=== PATIENT | male | born 1950 | race Caucasian/White ===

== ENCOUNTER 2021-10-05 18:55 | Emergency (ER) | payer MEDICARE, OTHER, SELFPAY ==
[2021-10-05 19:42] VITALS: BP 144/70; BP 180/96; PULSE 82; PULSE 86; RESP 18; TEMP 36.7; O2SAT 96; O2SAT 98; BMI 18.8
--- NOTE | 2021-10-05 20:04 | ED_ITS ---
HPI - Alcohol General Chief Complaint: ETOH/Substance Use Stated Complaint: ETOH, SI,VOLUNTARY Time Seen by Provider: 10/05/21 19:13 Source: patient Mode of arrival: ambulatory Limitations: no limitations History of Present Illness HPI narrative: Patient comes emergency room complaining drinking alcohol earlier today, making SI statements. Patient is now sober, states that he has never hurt himself or would hurt others, denies suicidal/homicidal ideation. Patient states that now that the alcohol levels have gone down he can think more clearly. Patient states that he is on sertraline, is compliant with his m edications. Came to emergency room because his family advised him to come due to depression , but patient does not want any help for alcohol detox or behavior [facility] /care team consult. Review of Systems Review of Systems: Constitutional : No Weight loss, No Fever, No Chills, No Night Sweats, No Fatigue, No Malaise ENT/Mouth : No Hearing loss, No Ear Pain, No Nasal Congestion, No Sinus Pain, No Hoarseness, No sore throat, No Rhinorrhea, No Swallowing Difficulty Eyes: No Eye Pain, No Swelling, No Redness, No Foreign Body, No Discharge, No Vision Changes Cardiovascular : No Chest Pain, No SOB, No Dyspnea on Exertion, No Orthopnea, No Edema, No Palpitations Respiratory : No Cough, No Sputum, No Wheezing, No Smoke Exposure, No Dyspnea Gastrointestinal : No Nausea, No Vomiting, No Diarrhea, No Constipation, No abdominal Pain, No Hematochezia, No Melena Genitourinary : no irregular bleeding, No Dysuria, No Urinary Frequency, No Hematuria, No Urinary Incontinence, No Urgency, No Flank Pain, No Urinary Flow Changes, No Hesitancy Musculoskeletal : No joint pain, No Myalgias, No Joint Swelling Skin : No Skin Lesions, No rash Neuro : No Weakness, No Numbness, No Paresthesias, No Loss of Consciousness, No Dizziness, No Headache Psych : No Anxiety/Panic, complaining of Depression, No SI/HI/AH/VH, No Social Issues, Heme/Lymph: No Bruising, No Bleeding,No Lymphadenopathy Endocrine : No Polyuria, No Polydipsia, No Temperature Intolerance PMFSH Social History Social History Advance Directives: No Advance Directives Information Provided: No Physical Exam Vital Signs: Vital Signs: Last Vital Signs Temp 98.0 F 10/05/21 19:42 Pulse 82 10/05/21 19:42 Resp 18 10/05/21 19:42 BP 144/70 H 10/05/21 19:42 Pulse Ox 98 10/05/21 19:42 Body Mass Index 18.8 Const: Other: Appearance: Alert. Oriented X3. No acute distress. Eyes: Pupils equal, round and reactive to light. ENT: Pharynx normal. Neck: Normal inspection. Neck supple. No lymph nodes noted. No crepitus CVS: Normal heart rate and rhythm. Pulses normal. Normal S1 and S2 Respiratory: No respiratory distress. Breath sounds normal. No Wheezing. No rales Abdomen: Soft and nontender. No rigidity. No distention. good BS x4 Skin: Skin warm and dry. Normal skin color. Normal skin turgor. Extremities: No lower extremity edema. No Lacerations. No Rash Neuro: Oriented X 3. No motor deficit. No sensory deficit. Moving all extermities. No slurred speech. Cranial nerves 2-12 grossly intact, patient has been walking around 80 with steady gait Psych: Seems depressed, teary, calm, cooperative Course Course Course Narrative: Patient admits to being depressed but states he is not suicidal or homicidal. Patient admits to drinking alcohol earlier today, patient is now clinically sober. Patient declined any help from the head golf coach is, behavioral [facility]/care team. Discharge Plan Discharge Clinical Impression: Depression Patient Disposition: Home, Self-Care Instructions: Depression (ED) Additional Instructions: Please follow-up with your primary care physician tomorrow. If you have any worsening or new symptoms, please return to the emergency room or call 911
== END 2021-10-05 20:13 | disposition home or self-care (01) ==
PROVIDERS: Emergency Provider Emergency Medicine
DX: F33.1 Major depressive disorder, recurrent, moderate (principal); R45.851 Suicidal ideations; Z79.899 Other long term (current) drug therapy
CPT/HCPCS: 99283; 99284

== ENCOUNTER 2021-10-10 06:15 | Emergency (ER) | payer MEDICARE, OTHER, SELFPAY ==
--- NOTE | ~2021-10-10 | CT_ITS ---
EXAMINATION: CT HEAD WITHOUT CONTRAST CLINICAL INFORMATION: Trauma, headache COMPARISON: None TECHNIQUE: Contiguous axial imaging was performed from the skull base to vertex without intravenous administration of contrast. Additional 2-D coronal and sagittal reformatted images are generated on the CT workstation and uploaded to PACS. This CT examination was performed using dose optimization techniques as appropriate, variously including the following: *Automated exposure control *Adjustment of mA and/or kV according to patient size (this includes techniques or standardized protocols for targeted exams where dose is matched to indication/reason for exam; i.e. extremities or head) *Use of iterative reconstruction technique DLP: 855 mGy-cm FINDINGS: There is no intracranial hemorrhage, hematoma, or extra-axial fluid collection. The ventricles are normal in size. There is no hydrocephalus, edema, or mass effect. The arnold-white matter differentiation appears symmetric. There is no visible acute territorial infarct or mass lesion. The calvarium appears intact. There is no pneumocephalus or orbital emphysema. The visualized sinuses and middle ears and mastoid air cells show no significant mucosal thickening. There are no air-fluid levels. CT/CT head/brain wo con IMPRESSION: No acute intracranial abnormality.
[2021-10-10 06:22] VITALS: BMI 29.5
[2021-10-10 06:31] VITALS: BP 168/91; PULSE 100; RESP 17; TEMP 37.5; O2SAT 99
[2021-10-10 06:42] LABS: Appearance Urine CLEAR; Color Urine YELLOW; Glucose Urine UA NEG (NEG); Leukocyte Esterase Urine NEG (NEG); Nitrite Urine NEG (NEG); Specific Gravity - Urine <= 1.005 (1.005-1.025); UACC Culture Trigger NO; Urine Blood 1+ (NEG); Urine Ketones NEG (NEG); Urine Protein 1+ MG/DL (NEG-TRACE)
[2021-10-10 06:55] LABS: COVID-19 Test Negative (Negative)
[2021-10-10 07:01] LABS: WBC Urine 0 /HPF (0-4)
[2021-10-10 07:04] LABS: Amphetamine Screen Urine Not Detected (Not Detect); Barbiturates, Urine Not Detected (Not Detect); Benzodiazepines Screen Urine Not Detected (Not Detect); Cannabinoid Screen Urine Not Detected (Not Detect); Cocaine Screen Urine Not Detected (Not Detect); Fentanyl, urine Not Detected (Not Detect); Opiate Screen Urine Not Detected (Not Detect); Phencyclidine Screen Urine Not Detected (Not Detect)
--- NOTE | 2021-10-10 09:09 | ED.PSYCH ---
HPI - Psych General Chief Complaint: Psychiatric Symptoms Stated Complaint: Crisis Time Seen by Provider: 10/10/21 09:09 Source: patient Limitations: no limitations History of Present Illness HPI Narrative: Patient presents to the ER with increasing depression and thoughts of suicidal ideation. Patient states multiple events have increased his depression and thoughts of suicide. Patient states his girlfriend left him losses apartment his dog was sent to the pound. Patient states he tried to cut his wrist a few days prior. Patient admits to using alcohol in the past. Patient denies drug or alcohol use and denies tobacco history. Patient states he has longstanding history of anxiety and it has been worse over the past few days. Patient states he would cut his wrist tender only to kill himself. MD complaint: suicidal ideation Related Data Home Medications Medication Instructions Recorded Confirmed atenolol 50 mg tablet 1 tab PO DAILY 10/10/21 10/10/21 clonazepam 0.5 mg tablet 1 - 2 tab PO DAILY PRN 10/10/21 10/10/21 sertraline 100 mg tablet 1 tab PO DAILY 10/10/21 10/10/21 simvastatin 40 mg tablet 1 tab PO BEDTIME 10/10/21 10/10/21 trazodone 50 mg tablet 1 tab PO BEDTIME PRN 10/10/21 10/10/21 Allergies Allergy/AdvReac Type Severity Reaction Status Date / Time Penicillins Allergy Intermediate Rash Verified 10/10/21 06:30 Sulfa (Sulfonamide Allergy Intermediate Rash Verified 10/10/21 06:35 Antibiotics) [Sulfonamides] Review of Systems Constitutional: Constitutional: Denies body ache(s), Denies chills and Denies fever(s) Eyes: Eyes: Denies loss of vision ENT: Denies sore throat Cardiovascular: Cardiovascular: Denies chest pain and Denies dyspnea Respiratory: Respiratory: Denies dyspnea Gastrointestinal: Gastrointestinal: Denies nausea and Denies vomiting Musculoskeletal: Musculoskeletal: Reports no additional musculoskeletal complaints Integumentary/Breasts: Skin/Breast: Denies rash Comments: Healing abrasions left wrist Neurologic: Denies loss of vision Psychiatric: Psychiatric: Reports anxiety, Reports depression and Reports anhedonia Comments: Suicidal ideation Endocrine: Endocrine: Reports no additional endocrine complaints Hematologic/Lymphatic: Hematologic/Lymphatic: Denies easy bruising PMFSH Social History Social History Alcohol intake: current Alcohol intake frequency: 3 or more drinks per day Alcohol type: beer Patient Tobacco Use Status: Never used Tobacco Advance Directives: No Healthcare Proxy: No Guardian: No Physical Exam Vital Signs: Vital Signs: Last Vital Signs Temp 98.8 F 10/10/21 16:39 Pulse 69 10/10/21 16:39 Resp 18 10/10/21 16:39 BP 170/81 H 10/10/21 16:39 Pulse Ox 100 10/10/21 16:39 Body Mass Index 29.5 vital signs have been reviewed as normal and appeared to be correct. Blood pressure normal. Heart rate normal. Respiration rate normal. Temperature normal. Oxygen saturation normal. Appearance: Alert. Oriented X3. No acute distress. Head: Normal external exam. Slight ecchymosis noted right temporal area minimal tenderness Eyes: PERRLA. EOMI. Conjunctiva and sclera normal. ENT: Pharynx normal. Uvula midline. Moist mucous membranes. Neck: Soft full range of motion CVS: Heart regular rate and rhythm no murmurs and rubs Respiratory: Breath sounds are clear to auscultation bilaterally. No accessory muscle use noted. Abdomen: Soft nontender no rebound or guarding positive bowel sounds Back: No CVA tenderness. Full range of motion noted. Skin: Patient has healing left wrist superficial lacerations Extremities: No lower extremity edema. Extremities exhibit normal range of motion. Extremities nontender. Psych: Positive suicidal ideation positive increasing depression. Denies homicidal ideation Neuro: Oriented X 3. No motor deficit. No sensory deficit. Reflexes normal. Course Course Course Narrative: Suicidal ideation Depression Anxiety Close head injury/subarachnoid hemorrhage will CT the head at this time secondary to ecchymosis in the right islam low suspicion for intracranial hemorrhage 9:16 a.m. Plan to have crisis evaluation. COVID-19 test is negative U tox is negative 11:10 a.m. Care team request an alcohol level on patient will order at this time CT scan results are pending 11:[address] scan of the head is negative 12:55 p.m. Alcohol level is normal. Crisis recommends admission for suicidal ideation Section 12 will be filled out by the attending. 5:14 p.m. Patient has bed placement at [facility] and 8:00 p.m. plan for discharge at that time MDM - Psych Lab Data Labs: Lab Results 10/10/21 10/10/21 10/10/21 Range/Units 06:35 06:35 06:35 Urine Color YELLOW Urine Appearance CLEAR Urine pH 7.0 (5.0-8.0) Ur Specific [place] <= 1.005 (1.005-1.025) Urine Protein 1+ H (NEG-TRACE) MG/DL Urine Glucose (UA) NEG (NEG) MG/DL Urine Ketones NEG (NEG) MG/DL Urine Blood 1+ H (NEG) Urine Nitrite NEG (NEG) Ur Leukocyte Esterase NEG (NEG) Urine RBC 1-4 (0) /HPF Urine WBC 0 (0-4) /HPF Ur Squamous Epith Cells NONE /LPF Urine Bacteria NONE /LPF Urine Opiates Screen Not Detected (Not Detect) Urine Fentanyl Screen Not Detected (Not Detect) Ur Barbiturates Screen Not Detected (Not Detect) Ur Phencyclidine Scrn Not Detected (Not Detect) Ur Amphetamines Screen Not Detected (Not Detect) U Benzodiazepines Scrn Not Detected (Not Detect) Urine Cocaine Screen Not Detected (Not Detect) U Marijuana (THC) Screen Not Detected (Not Detect) Ethyl Alcohol mg/dL COVID-19 (GAURAV) Negative (Negative) COVID-19 Clin Com See Note 10/10/21 Range/Units 11:23 Urine Color Urine Appearance Urine pH (5.0-8.0) Ur Specific [place] (1.005-1.025) Urine Protein (NEG-TRACE) MG/DL Urine Glucose (UA) (NEG) MG/DL Urine Ketones (NEG) MG/DL Urine Blood (NEG) Urine Nitrite (NEG) Ur Leukocyte Esterase (NEG) Urine RBC (0) /HPF Urine WBC (0-4) /HPF Ur Squamous Epith Cells /LPF Urine Bacteria /LPF Urine Opiates Screen (Not Detect) Urine Fentanyl Screen (Not Detect) Ur Barbiturates Screen (Not Detect) Ur Phencyclidine Scrn (Not Detect) Ur Amphetamines Screen (Not Detect) U Benzodiazepines Scrn (Not Detect) Urine Cocaine Screen (Not Detect) U Marijuana (THC) Screen (Not Detect) Ethyl Alcohol < 10 mg/dL COVID-19 (GAURAV) (Negative) COVID-19 Clin Com Imaging Data CT scan - head: Radiologist's impression: [address] [address] [address] Scan Report Signed Patient: Dipak Delacruz MR#: [id number] : 1950 Acct:[id number] Age/Sex: 70 / M ADM Date: 10/10/21 Loc: HO.ED Attending Dr: Ordering Physician: Santiago Garcia Date of Service: 10/10/21 Procedure(s): CT head/brain wo con Accession Number(s): [id number] cc: Santiago Garcia ~ EXAMINATION: CT HEAD WITHOUT CONTRAST CLINICAL INFORMATION: Trauma, headache? COMPARISON: None TECHNIQUE: Contiguous axial imaging was performed from the skull base to vertex without intravenous administration of contrast.? Additional 2-D coronal and sagittal reformatted images are generated on the CT workstation and uploaded to PACS. This CT examination was performed using dose optimization techniques as appropriate, variously including the following: *Automated exposure control *Adjustment of mA and/or kV according to patient size (this includes techniques or standardized protocols for targeted exams where dose is matched to indication/reason for exam; i.e. extremities or head) *Use of iterative reconstruction technique DLP: 855 mGy-cm FINDINGS: There is no intracranial hemorrhage, hematoma, or extra-axial fluid collection.? The ventricles are normal in size. There is no hydrocephalus, edema, or mass effect.? The arnold-white matter differentiation appears symmetric.? There is no visible acute territorial infarct or mass lesion. The calvarium appears intact. There is no pneumocephalus or orbital emphysema.? The visualized sinuses and middle ears and mastoid air cells show no significant mucosal thickening. There are no air-fluid levels. CT/CT head/brain wo con IMPRESSION: No acute intracranial abnormality. ? Dictated By: Denny Ozuna MD Signed By: <Electronically signed by Denny Ozuna MD in OV> 10/10/21 1136 DD/ 0910 TD/TT:? Plant Protection Officer: CARMEN Discharge Plan Discharge Clinical Impression: Suicidal ideation Patient Disposition: Xfer Psychiatric Hosp Prescriptions: No Action trazodone 50 mg tablet 1 tab PO BEDTIME PRN (Reason: insomnia) RF: 0 clonazepam 0.5 mg tablet 1 - 2 tab PO DAILY PRN (Reason: Anxiety) RF: 0 sertraline 100 mg tablet 1 tab PO DAILY RF: 0 simvastatin 40 mg tablet 1 tab PO BEDTIME RF: 0 atenolol 50 mg tablet 1 tab PO DAILY RF: 0
[2021-10-10] MEDS: LORazepam 1 MG TABLET PO (09:17)
[2021-10-10 10:09] VITALS: BP 168/91; PULSE 100
[2021-10-10] MEDS: Sertraline HCL 100 MG TABLET PO (10:09)
[2021-10-10] MEDS: atenoloL 50 MG TABLET PO (10:09)
[2021-10-10 11:44] LABS: Ethanol < 10 mg/dL
[2021-10-10] MEDS: clonazePAM 0.5 MG TABLET PO (16:38)
[2021-10-10 16:39] VITALS: BP 170/81; PULSE 69; RESP 18; TEMP 37.1; O2SAT 100
== END 2021-10-10 19:09 ==
PROVIDERS: Emergency Medicine; Emergency Provider Emergency Medicine Emergency Medical Services
DX: R45.851 Suicidal ideations (principal); F32.A Depression, unspecified; Z79.899 Other long term (current) drug therapy; Z20.822 Contact with and (suspected) exposure to COVID-19
CPT/HCPCS: 36415; 70450; 80307; 81001; 82077; 87635; 99285

== ENCOUNTER 2025-01-18 13:42 | Inpatient (IN) | payer MEDICARE, OTHER, SELFPAY ==
--- NOTE | ~2025-01-18 | XR_ITS ---
EXAMINATION: XR CHEST CLINICAL INFORMATION: chest pain COMPARISON: None available. TECHNIQUE: 2 views of the chest were obtained. FINDINGS: The cardiac, hilar, and mediastinal contours are normal. Aortic mural calcification. The lungs are clear bilaterally. There is no pneumothorax or pleural effusion. There is no focal osseous or soft tissue abnormality. There are spinal and shoulder joint degenerative changes. XR/XR chest 2V IMPRESSION: No active pulmonary disease. Electronically signed by: Chandrakant Wilkes MD 01/18/2025 03:16 PM EST
--- NOTE | ~2025-01-18 | MR_ITS ---
CLINICAL HISTORY: R O Wernicke-Korsakoff MR Brain without gadolinium Comparison: CT/SR - CT HEAD/BRAIN WO CON - 10/10/21 10:35 EST Findings: No restricted diffusion. No intracranial mass or hemorrhage. No midline shift. No hydrocephalus. Vascular flow voids are intact. Scattered T2 signal prolongation in the periventricular white matter. Mild volume loss. The orbits are normal. The sinuses demonstrate mild mucoperiosteal thickening. Mastoid air cells are clear. No focal bone lesion. IMPRESSION: No acute ischemia or alternate acute process. Specifically, no edema involving the thalami or periaqueductal arnold area. Mild ischemic microangiopathy and diffuse volume loss. This document has been electronically signed by: Sarath Gaming MD on 01/26/2025 17:49:43
--- NOTE | 2025-01-18 13:51 | ED_ITS ---
HPI - General Adult General Chief complaint: Chest Pain Stated complaint: CP PER EMS Time Seen by Provider: 01/18/25 13:50 History of Present Illness ED Provider: Kp ROCA narrative: The patient is a 74-year-old male who says that he has had chest pain since yesterday evening at around 18:00. He says it started more in the left side but subsequently has moved to a more central location in his mid chest. He has had some associated nausea. He has felt some mild shortness of breath. He ultimately called an ambulance and was brought to the hospital. He received aspirin in the ambulance. He rates his discomfort as an 8/10 at the moment. No nausea or vomiting. No fever, sweats, chills. He says that he has a history of some kind of heart valve problem. He says that he was seen at [facility] a couple of years ago and told that he has a valvular problem. He has been on atenolol and another medication for awhile but was unable to fill his prescriptions several months ago and has been off medications for several months. He used to live in the [facility] but now lives at a sober living house, [facility]. He is . He says that he lost most of his assets in the divorce and that is why he is living where he is currently living. The patient says that he used to drink fairly heavily but has not had any alcohol for a couple of years. He is still a smoker. The patient is feeling depressed. He has a history of depression. He was hospitalized for depression in 2020. He says that the move to the house where he is currently living has been bad for his mental health and he has been thinking about how depressed he is. He has had vague suicidal thoughts. He has had vague thoughts about jumping off a bridge. Related Data Home Medications ?Medication ?Instructions ?Recorded ?Confirmed atenolol 50 mg tablet 1 tab PO DAILY 10/10/21 10/10/21 clonazepam 0.5 mg tablet 1 - 2 tab PO DAILY PRN Anxiety 10/10/21 10/10/21 sertraline 100 mg tablet 1 tab PO DAILY 10/10/21 10/10/21 simvastatin 40 mg tablet 1 tab PO BEDTIME 10/10/21 10/10/21 trazodone 50 mg tablet 1 tab PO BEDTIME PRN insomnia 10/10/21 10/10/21 Allergies Allergy/AdvReac Type Severity Reaction Status Date / Time Penicillins Allergy Intermediate Rash Verified 01/18/25 14:10 Sulfa (Sulfonamide Allergy Intermediate Rash Verified 01/18/25 14:10 Antibiotics) [Sulfonamides] Review of Systems 2 Review of Systems: Yes all other systems are reviewed and are negative [facility] Social History Social History Alcohol intake: current Alcohol intake frequency: 3 or more drinks per day Alcohol type: beer Patient Tobacco Use Status: Never used Tobacco Advance Directives: No Advance Directives Information Provided: Yes Do you have a plan to hurt others: No Plan Physical Exam ED Vital Signs: Vital Signs - 24 hr 01/18/25 14:05 01/18/25 16:37 Temperature 98.2 F 98.1 F Pulse Rate 92 80 Respiratory Rate 14 14 Blood Pressure 131/78 121/76 Pulse Oximetry 97 98 Oxygen Delivery Method Room Air Room Air BMI result Body Mass Index 28.9 Const Other: The patient is awake and alert, pleasant cooperative. He does not appear in overt distress. HENMT Other: Face is symmetrical. Mucous membranes moist. Eyes Other: Pupils are round equal, conjunctivae are clear Neck Neck: Yes full ROM, Yes no lymphadenopathy and Yes no JVD Resp Effort & Inspection: normal respiratory effort Auscultation: clear to auscultation bilaterally Cardio Rate: regular rate Rhythm: regular rhythm Heart sounds: S1 normal heart sound present, S2 normal heart sound present and Murmur heart sound present (3/6 systolic murmur best heard at the left upper sternal border) GI Other: Abdomen is soft and nontender Skin Other: Skin is dry and unremarkable Neuro Other: The patient is awake and alert with a normal mental status. Cranial nerves 2-12 are intact. He moves his extremities normally and appropriately. Normal coordination. He is neurologically intact. Extrem Other: No calf swelling or tenderness. No peripheral edema. No asymmetry. Medications Administered Discontinued Medications Generic Name Dose Route Start Last Admin Trade Name Freq PRN Reason Stop Dose Admin Al Hydroxide/Mg Hydroxide 30 ml 01/18/25 14:24 01/18/25 14:42 Magnesium Hydrox/Alum Hydrox 30 Ml Oral.Susp PO 01/18/25 14:25 30 ml ONCE ONE Administration Ondansetron HCl 4 mg 01/18/25 14:24 01/18/25 14:42 Ondansetron Hcl 4 Mg/2 Ml Vial IVPUSH 01/18/25 14:25 4 mg ONCE ONE Administration Medical Decision Making Medical Decision Making [facility] Narrative: The patient is a very pleasant 74-year-old male who comes to the emergency room complaining of chest pain. He says there is a family history of coronary disease and he is worried he might be having a heart attack. He presents after over 12 hours of discomfort. His EKGs nonischemic. His troponins are not elevated. A D-dimer is normal. My suspicion for an acute coronary syndrome or other dangerous vascular problem is very low. When I explained to the patient that his medical evaluation seemed to be very reassuring he then spoke to me about how he has been feeling depressed. He has a history of depression and has been psychiatrically hospitalized in the past. He says that his current living situation is getting him down. He says that he had a divorce in which he lost most of his assets. That is why he is currently living at what is essentially a [facility] house. He finds this tomorrow rising and depressing. He has had some suicidal thoughts and has thought about jumping off a bridge although he has no definite plan. The patient seems to be medically cleared. I think he would benefit from a care team evaluation. I have put in a consult for a care team evaluation. The patient will be placed in physician observation pending a care team evaluation and recommendations. Lab Data 01/18/25 14:39 01/18/25 14:39 Labs: Lab Results 01/18/25 01/18/25 Range/Units 14:39 16:00 WBC 8.7 (4.8-10.8) X10*3/uL RBC 4.75 (4.60-5.80) X10*6/uL Hgb 13.7 L (14.0-18.0) g/dl Hct 39.8 L (42.0-52.0) % MCV 83.8 (80.0-98.0) fL MCH 28.8 (27.0-33.0) pg MCHC 34.4 (31.0-36.0) g/dl RDW 13.7 (11.0-16.0) % Plt Count 244 (160-400) X10*3/uL MPV 8.6 L (9.4-12.4) fL Immature Gran % (Auto) 0.3 (0.0-0.4) % Neut % (Auto) 82.9 H (45-73) % Lymph % (Auto) 10.5 L (20-40) % [place] % (Auto) 5.1 (2-11) % Eos % (Auto) 0.9 (0-4) % Baso % (Auto) 0.3 (0-2) % Lymph # (Auto) 0.9 L (1.2-4.9) X10*3/uL [place] # (Auto) 0.4 (0.1-1.2) X10*3/uL Eos # (Auto) 0.1 (0.0-0.4) X10*3/uL Baso # (Auto) 0.0 (0.0-0.2) X10*3/uL Abs Immat Gran (auto) 0.03 (0.00-0.03) X10*3/uL Absolute Neuts (auto) 7.2 (2.0-8.3) x10*3/uL Absolute Nucleated RBC 0.000 (0.0-0.012) X10*3/uL Nucleated RBC % (auto) 0.0 (0.0-0.2) /100WBC PT 11.8 (10.9-12.4) SEC INR 1.0 (0.9-1.1) D-Dimer High Sensitivty 154 NG/ML Sodium 138 (135-145) mmol/L Potassium 3.9 (3.3-5.1) mmol/L Chloride 105 (96-108) mmol/L Carbon Dioxide 25 (22-29) mmol/L Anion Gap 12 (12-20) BUN 13 (9-16) mg/dL Creatinine 0.74 (0.5-1.4) mg/dL Estim Creat Clear Calc 113.3 Estimated GFR > 60 Random Glucose 93 (60-115) mg/dL Calcium 9.4 (8.4-10.2) mg/dL Magnesium 2.0 (1.6-2.6) mg/dL Total Bilirubin 0.4 (0.0-1.0) mg/dL Direct Bilirubin 0.2 (0.0-0.5) mg/dL AST 22 (5-37) U/L ALT 13 (0-40) U/L Alkaline Phosphatase 64 (39-117) U/L Troponin I High Sens 12.6 11.5 (<3.5-35.0) ng/L C-Reactive Protein 1.22 H (< or = 0.50) mg/dL B-Natriuretic Peptide 29 (<100) pg/mL Total Protein 7.5 (6.5-8.0) g/dL Albumin 3.7 (3.5-5.0) g/dL Lipase 18 (8-78) U/L Urine Color Yellow Urine Appearance Clear Urine pH 6.0 (5.0-9.0) Ur Specific [place] 1.025 (1.005-1.025) Urine Protein Negative (Neg-Trace) mg/dL Urine Glucose (UA) Negative (Negative) mg/dL Urine Ketones Trace (Negative) mg/dL Urine Blood Negative (Negative) Urine Nitrite Negative (Negative) Ur Leukocyte Esterase Small (1+) H (Negative) Urine RBC 3-5 H (0-2) /HPF Urine WBC 21-50 H (0-5) /HPF Ur Squamous Epith Cells 0-2 (0-2) /HPF Urine Bacteria Trace (None Seen) Hyaline Casts 0-2 (0-2) /LPF Influenza Type A (PCR) NEGATIVE (Negative) Influenza Type B (PCR) NEGATIVE (Negative) RSV RNA Qual (PCR) NEGATIVE (Negative) SARS-CoV-2 RNA (RT-PCR) NEGATIVE (Negative) Independent Interpretation I performed an independent interpretation of an: EKG Interpretation: EKG at 14:10 shows normal sinus rhythm at 96 beats per minute. No definite acute ischemic changes. Discharge Plan Discharge Clinical Impression: Depression, Chest pain Patient Disposition: Still a Patient Prescriptions: No Action trazodone 50 mg tablet 1 tab PO BEDTIME PRN (Reason: insomnia) clonazepam 0.5 mg tablet 1 - 2 tab PO DAILY PRN (Reason: Anxiety) sertraline 100 mg tablet 1 tab PO DAILY simvastatin 40 mg tablet 1 tab PO BEDTIME atenolol 50 mg tablet 1 tab PO DAILY Print Language: Yakut
--- NOTE | 2025-01-18 14:01 | ECG_ITS ---
Test Reason : CHEST PAIN Blood Pressure : */* mmHG Vent. Rate : 96 BPM Atrial Rate : 96 BPM P-R Int : 200 ms QRS Dur : 92 ms QT Int : 360 ms P-R-T Axes : 12 -29 40 degrees QTcB Int : 454 ms Normal sinus rhythm Inferior infarct , age undetermined Cannot rule out Anterior infarct , age undetermined Abnormal ECG No previous ECGs available Referred By: Mark Goodrich Electronically Signed By: VIVIANA DALTON
[2025-01-18 14:02] VITALS: BP 96/62; PULSE 104; O2SAT 97
[2025-01-18 14:05] VITALS: BP 131/78; PULSE 92; RESP 14; TEMP 36.8; O2SAT 97; BMI 28.9
[2025-01-18] MEDS: ondansetron HCL 4 MG/2 ML VIAL IVPUSH (14:42)
[2025-01-18] MEDS: Magnesium Hydrox/Alum Hydrox 30 ML ORAL.SUSP PO (14:42)
[2025-01-18 14:43] LABS: MANUAL DIFF FLAG NO
[2025-01-18 14:46] LABS: Basophils Percent Auto 0.3 % (0-2); Eosinophils Absolute Auto 0.1 X10*3/uL (0.0-0.4); Eosinophils Percent Auto 0.9 % (0-4); Hematocrit 39.8 % (42.0-52.0); Hemoglobin 13.7 g/dl (14.0-18.0); Imm Gran Abs Auto 0.03 X10*3/uL (0.00-0.03); Imm Gran Pct Auto 0.3 % (0.0-0.4); Lymphocytes Absolute Auto 0.9 X10*3/uL (1.2-4.9); Lymphocytes Percent Auto 10.5 % (20-40); Mean Corpuscular HGB Conc 34.4 g/dl (31.0-36.0); Mean Corpuscular Hemoglobin 28.8 pg (27.0-33.0); Mean Corpuscular Volume 83.8 fL (80.0-98.0); Mean Platelet Volume 8.6 fL (9.4-12.4); Monocytes Absolute Auto 0.4 X10*3/uL (0.1-1.2); Monocytes Percent Auto 5.1 % (2-11); Neutrophils Absolute Auto 7.2 x10*3/uL (2.0-8.3); Neutrophils Percent Auto 82.9 % (45-73); Platelet Count 244 X10*3/uL (160-400); Red Blood Count 4.75 X10*6/uL (4.60-5.80); Red Cell Distribution Width 13.7 % (11.0-16.0); White Blood Count 8.7 X10*3/uL (4.8-10.8)
[2025-01-18 14:59] LABS: Prothrombin Time 11.8 SEC (10.9-12.4)
[2025-01-18 15:05] LABS: Alanine Aminotransferase 13 U/L (0-40); Albumin Level 3.7 g/dL (3.5-5.0); Anion Gap 12 (12-20); Aspartate Amino Transferase 22 U/L (5-37); Bilirubin Direct 0.2 mg/dL (0.0-0.5); Bilirubin Total 0.4 mg/dL (0.0-1.0); Blood Urea Nitrogen 13 mg/dL (9-16); C Reactive Protein 1.22 mg/dL (< or = 0.50); Calcium 9.4 mg/dL (8.4-10.2); Carbon Dioxide 25 mmol/L (22-29); Chloride 105 mmol/L (96-108); Creatinine Clr Calc Pharmacy 113.3; Estimated Glomerular Filt Rate > 60; Glucose Random 93 mg/dL (60-115); Lipase 18 U/L (8-78); Potassium 3.9 mmol/L (3.3-5.1); Sodium 138 mmol/L (135-145); Total Protein 7.5 g/dL (6.5-8.0)
[2025-01-18 15:06] LABS: Troponin-I High Sensitivity 12.6 ng/L (<3.5-35.0)
[2025-01-18 15:22] LABS: Influenza A PCR NEGATIVE (Negative); Influenza B PCR NEGATIVE (Negative); Resp Syncy Virus RNA Qual PCR NEGATIVE (Negative); SARS COV2 PCR INHOUSE NEGATIVE (Negative)
[2025-01-18 15:29] LABS: Alkaline Phosphatase 64 U/L (39-117)
[2025-01-18 15:46] LABS: D Dimer High Sensitivity 154 NG/ML
[2025-01-18 16:06] LABS: Appearance Urine Clear; Color Urine Yellow; Glucose Urine UA Negative (Negative); Leukocyte Esterase Urine Small (1+) (Negative); Nitrite Urine Negative (Negative); Specific Gravity - Urine 1.025 (1.005-1.025); UMIC TRIGGER UACC YES; Urine Blood Negative (Negative); Urine Ketones Trace mg/dL (Negative); Urine Protein Negative (Neg-Trace)
[2025-01-18 16:07] LABS: B Type Natriuretic Peptide 29 pg/mL (<100)
[2025-01-18 16:18] LABS: Bacteria Urine Trace (None Seen); Hyaline Casts Urine 0-2 /LPF (0-2); Squamous Epithelial Cell Urine 0-2 /HPF (0-2); UACC Culture Trigger YES; WBC Urine 21-50 /HPF (0-5)
[2025-01-18 16:23] LABS: Troponin-I High Sensitivity 11.5 ng/L (<3.5-35.0)
[2025-01-18 16:37] VITALS: BP 121/76; PULSE 80; RESP 14; TEMP 36.7; O2SAT 98
--- NOTE | 2025-01-18 18:13 | PC.NURSE ---
Patient initially presented to ED w/ CP - full cardiac work up completed & negative. Provider Dr. Flores went in to speak with patient about possibility of D/C home, patient then began endorsing SI stating per Dr. Flores he's been looking for bridges to jump off of . CARE team consult placed, patient changed into [facility], belongings secured in [facility] closet by GYAE Shrestha.
--- NOTE | 2025-01-18 18:29 | PC.NURSE ---
patient states that home medications include atenolol, simvstatin, sertraline. patient does not know the dose and states that he has not taken them in over a year.
[2025-01-18 18:58] LABS: Amphetamine Screen Urine Not Detected (Not Detect); Barbiturates, Urine Not Detected (Not Detect); Benzodiazepines Screen Urine Not Detected (Not Detect); Buprenorphine Scr Not Detected (Not Detect); Cannabinoid Screen Urine Not Detected (Not Detect); Cocaine Screen Urine Not Detected (Not Detect); Fentanyl, urine Not Detected (Not Detect); Methadone Screen, Urine Not Detected (Not Detect); Opiate Screen Urine Not Detected (Not Detect); Oxycodone Screen Urine Not Detected (Not Detect); Phencyclidine Screen Urine Not Detected (Not Detect)
[2025-01-19 04:18] VITALS: BP 133/72; PULSE 90; RESP 18; TEMP 36.6; O2SAT 95
--- NOTE | 2025-01-19 11:15 | PHA.MEDREC ---
Addendum entered by Shanatnu Wayne RPh 01/19/25 11:33: Reviewed by [facility]. Pt is not on any medications. Original Note: Pharmacy Consult ? Medication Reconciliation Pharmacy has completed the medication reconciliation. Spoke with patient and he confirmed he is not taking any medications at this time and has not taken anything in about 6 months. He did confirm he was taking Atenolol, Sertraline, Simvastatin and Trazodone, looking in claims we have Sertraline and Trazodone last filled 04/17 for 30 days and for Atenolol and Simvastatin we have no claims for those.
[2025-01-19 13:42] VITALS: BP 109/68; PULSE 90; RESP 18; TEMP 36.9; O2SAT 99
[2025-01-19 14:11] VITALS: BMI 28.8
[2025-01-19] MEDS: cefuroxime axetiL 250 MG TABLET PO ×2 (14:18→20:33)
[2025-01-19] MEDS: Flu Vacc TS2024-25(6mos up)/PF 0.5 ML SYRINGE IM (16:24)
--- NOTE | 2025-01-19 17:42 | PC.ADMIT ---
Addendum entered by Kristin Bender RN 01/19/25 17:54: He denies having any psychiatric providers and has not seen his current PCP in a long time. He also reports not taking any medications in many months, last documented fill date was in March of 2024. Original Note: Dipak was admitted to on 01/19/25 on a CV for treatment of major depressive disorder after having suicidal thoughts of jumping off a bridge. During admission assessment, Dipak is calm, cooperative and polite but is not easily fourth coming with information. He initially came to the hospital due to chest pain, all work up was negative, and when came time for discharge he reported having SI. He presents as depressed an his affect is congruent with his mood. His focus is clear and his thoughts are linear. He denies issues with appetite but endorses difficulty sleeping at times. He denies substance use but endorses occasional ETOH use, very little and only beer. I haven't had a drink in a really long time. At present, he denies SI/HI/AVH. 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 He denies any medical issues except for a heart murmur but could not elaborate. He denies any other issues. Skin check completed by this RN and Ryder Lee RN, and was unremarkable other than dry feet and mild acne to his forehead. He was placed on 15 minute checks for safety.
[2025-01-19 20:00] VITALS: BP 152/73; PULSE 76; TEMP 36.8; O2SAT 97
[2025-01-19] MEDS: traZODone HCL 50 MG TABLET PO (20:33)
[2025-01-20 07:46] VITALS: BP 138/74; PULSE 81; RESP 16; TEMP 36.6; O2SAT 98
[2025-01-20 08:17] LABS: Estimated Average Glucose 103 mg/dL; Hemoglobin A1C 126.4499 umol/L; Hemoglobin A1c % 5.2 % (<6.0); Total Hemoglobin (HGBA1C) 3745.4671 umol/L
[2025-01-20 08:27] LABS: Cholesterol 193 mg/dL (<200); HDL Cholesterol 36 mg/dL (>40); LDL Cholesterol Calculated 145 mg/dL (<100); Triglycerides 64 mg/dL (<150)
[2025-01-20] MEDS: cefuroxime axetiL 250 MG TABLET PO ×2 (08:34→21:01)
[2025-01-20] MEDS: Acetaminophen 325 MG TABLET 650 MG PO (08:36)
--- NOTE | 2025-01-20 10:11 | P.HPPS_ITS ---
[facility] Date of Service: 01/20/25 Chief Complaint: Depression Sources of Information: patient interviewed, chart reviewed and crisis/core team assessment reviewed HPI Subjective Notes: [place] Warning and Conditional Voluntary Narrative: Patient is a 74-year-old male with history of MDD who presented to ER due to suicidal ideation secondary to increased depression and hopelessness. Per crisis report, patient arrived via EMS to [facility] initially with concerns of chest pain. Patient then reported increased depression with passive suicidal ideation and hopelessness. Patient was living at [facility] and began to feel increasingly hopeless and suicidal after they told him that they had to give his bed to someone else. He reports history of suicidal planning but no attempts. In 2020, history of being found with loaded firearm beside him after arguing with his girlfriend at the time. Denies HI/VH/AH. He reports difficulty sleeping and poor appetite. 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 Denies history of psychiatric providers. History of 1 admission to a [facility] facility in 2020. Minimizes history of alcohol use. During admission assessment, patient presents alert and oriented x3. Calm and cooperative. Patient reports feeling depressed; patient stated, I'm depressed because I have no where to go. I'm an educated person. I need help going to the next step before I am able to get my own apartment . Patient reports he is no longer feeling suicidal; patient stated, when I came to the hospital I was, but now I feel more relaxed and not feeling that way . He denies any history of psychiatric medications. When asked about incident in 2020 with being found with a loaded firearm, patient stated, it was a hunting rifle and I was packing my things after my girlfriend and I broke up it was not loaded . Denies history of SA/SIB. Patient reports that he would like referrals to outpatient psychiatric providers. He reports difficulty sleeping. Reports history of alcohol use however states he does not use any substances at this time. Utox negative for all substances. Risks/benefits reviewed of Remeron; patient agreed to trial. denies SI/HI/VH/AH at this time. Past Psychiatric History: Does not have outpatient psychiatric providers. Denies history of SA/SIB. Medical Evaluation Reviewed: Yes PMFSH Family History: Sister: Anxiety Social History: Homeless. . Three adult children. Retired. Master's degree. Substance History: Reports history of alcohol use. Denies any substance use at this time. Utox negative. Trauma History: Denies. Diagnostics Vital Signs (24Hr): Vital Signs - 24 hr 01/19/25 13:42 01/19/25 20:00 01/20/25 07:46 Temperature 98.4 F 98.3 F 97.8 F Pulse Rate 90 76 81 Respiratory Rate 18 16 Blood Pressure 109/68 152/73 H 138/74 Pulse Oximetry 99 97 98 Oxygen Delivery Method Room Air Room Air Room Air BMI result Body Mass Index 28.8 Labs 01/18/25 14:39 01/18/25 14:39 Labs: Laboratory Results - last 48 hr 01/18/25 01/18/25 01/20/25 14:39 16:00 07:54 WBC 8.7 RBC 4.75 Hgb 13.7 L Hct 39.8 L MCV 83.8 MCH 28.8 MCHC 34.4 RDW 13.7 Plt Count 244 MPV 8.6 L Immature Gran % (Auto) 0.3 Neut % (Auto) 82.9 H Lymph % (Auto) 10.5 L [place] % (Auto) 5.1 Eos % (Auto) 0.9 Baso % (Auto) 0.3 Lymph # (Auto) 0.9 L [place] # (Auto) 0.4 Eos # (Auto) 0.1 Baso # (Auto) 0.0 Abs Immat Gran (auto) 0.03 Absolute Neuts (auto) 7.2 Absolute Nucleated RBC 0.000 Nucleated RBC % (auto) 0.0 PT 11.8 INR 1.0 D-Dimer High Sensitivty 154 Sodium 138 Potassium 3.9 Chloride 105 Carbon Dioxide 25 Anion Gap 12 BUN 13 Creatinine 0.74 Estim Creat Clear Calc 113.3 Estimated GFR > 60 Random Glucose 93 Estimat Average Glucose 103 Hemoglobin A1c % 5.2 Calcium 9.4 Magnesium 2.0 Total Bilirubin 0.4 Direct Bilirubin 0.2 AST 22 ALT 13 Alkaline Phosphatase 64 Troponin I High Sens 12.6 11.5 C-Reactive Protein 1.22 H B-Natriuretic Peptide 29 Total Protein 7.5 Albumin 3.7 Triglycerides 64 Cholesterol 193 LDL Cholesterol, Calc 145 H HDL Cholesterol 36 L Lipase 18 TSH 1.40 Urine Color Yellow Urine Appearance Clear Urine pH 6.0 Ur Specific [place] 1.025 Urine Protein Negative Urine Glucose (UA) Negative Urine Ketones Trace Urine Blood Negative Urine Nitrite Negative Ur Leukocyte Esterase Small (1+) H Urine RBC 3-5 H Urine WBC 21-50 H Ur Squamous Epith Cells 0-2 Urine Bacteria Trace Hyaline Casts 0-2 Urine Opiates Screen Not Detected Ur Buprenorphine Scrn Not Detected Ur Oxycodone Screen Not Detected Urine Methadone Screen Not Detected Urine Fentanyl Screen Not Detected Ur Barbiturates Screen Not Detected Ur Phencyclidine Scrn Not Detected Ur Amphetamines Screen Not Detected U Benzodiazepines Scrn Not Detected Urine Cocaine Screen Not Detected U Marijuana (THC) Screen Not Detected Influenza Type A (PCR) NEGATIVE Influenza Type B (PCR) NEGATIVE RSV RNA Qual (PCR) NEGATIVE SARS-CoV-2 RNA (RT-PCR) NEGATIVE Imaging Radiology Impressions: ITS Impressions Chest X-Ray 01/18/25 14:22 IMPRESSION: No active pulmonary disease. Electronically signed by: Chandrakant Wilkes MD 01/18/2025 03:16 PM [facility] Meds/Allergies Meds Home Medications ?Medication ?Instructions ?Recorded ?Confirmed ?Type No Known Home Meds 01/18/25 01/18/25 History Allergies Allergies Allergy/AdvReac Type Severity Reaction Status Date / Time Penicillins Allergy Intermediate Rash Verified 01/18/25 14:10 Sulfa (Sulfonamide Allergy Intermediate Rash Verified 01/18/25 14:10 Antibiotics) [Sulfonamides] Mental Status Exam Mental Status Exam Patient Appearance: Well Grooomed Patient Orientation: Person, Place, Time and Situation Level of Consciousness: Awake and Alert Patient Behavior: Appropriate, Cooperative and Good Eye Contact Mood Description: Calm and Depressed Affect Description: Calm Ability to Follow Directions: Good Speech Pattern: Clear and Appropriate Memory Description: Intact Hallucinations: None Delusions: Not Present Thought Process: Intact and Goal Oriented Thought Content: positive for Intact Assessment & Plan Assessment & Plan (1) MDD (major depressive disorder), recurrent episode: Status: Acute Code(s): F33.9 - Major depressive disorder, recurrent, unspecified Plan Patient is a 74-year-old male with history of MDD who presented to ER due to suicidal ideation secondary to increased depression and hopelessness. Plan: CV 15 minute safety checks Start: Remeron 15mg PO bedtime Melatonin 3mg PO bedtime Referral to outpatient psychiatric providers Encourage groups Discharge planning Patient educated on: diagnosis and medication risk/benefits Reason for continued inpatient stay Substantial Risk for: med/psych decompensation Statement Statement: I have reviewed the history and physical and performed a pertinent examination on my patient. No changes have occurred unless specified. If the History and Physical was not performed prior to admission, the Hospitalist's service will be consulted for completing the admission physical. Time Spent With Patient Time: Total time managing care of this patient today _60___ minutes.
[2025-01-20 20:00] VITALS: BP 138/71; PULSE 80; RESP 16; TEMP 36.4; O2SAT 95
[2025-01-20] MEDS: Milk of Magnesia 30 ML ORAL.SUSP PO (21:01)
[2025-01-20] MEDS: Mirtazapine 15 MG TABLET PO (21:01)
[2025-01-20] MEDS: traZODone HCL 50 MG TABLET PO (21:01)
[2025-01-20] MEDS: Melatonin 3 MG TABLET PO (21:02)
[2025-01-21 07:40] VITALS: BP 154/68; PULSE 68; RESP 16; TEMP 36.9; O2SAT 98
[2025-01-21] MEDS: cefuroxime axetiL 250 MG TABLET PO ×2 (09:04→20:06)
--- NOTE | 2025-01-21 10:40 | P.PNPSI_ITS ---
Subjective Subjective Date of Service: 01/21/25 Reason For Visit: Depression Interim History: Patient seen and discussed. Patient reports he is feeling depressed related to his living situation. He is losing his housing. He is future oriented and planning on going to a motel and finding an apartment while staying at the motel. He denies he has active SI. He denies AVH. Review of Systems Review of Systems Yes all other systems are reviewed and are negative Mental Status Exam Mental Status Exam Patient Appearance: Well Grooomed Patient Orientation: Person, Place, Time and Situation Level of Consciousness: Awake and Alert Patient Behavior: Appropriate, Cooperative and Good Eye Contact Mood Description: Calm and Depressed Affect Description: Calm Ability to Follow Directions: Good Speech Pattern: Clear and Appropriate Memory Description: Intact Diagnostics Vital Signs (24Hr): Vital Signs - 24 hr 01/20/25 20:00 01/21/25 07:40 Temperature 97.6 F 98.5 F Pulse Rate 80 68 Respiratory Rate 16 16 Blood Pressure 138/71 154/68 H Pulse Oximetry 95 98 Oxygen Delivery Method Room Air Room Air BMI result Body Mass Index 28.8 Labs 01/18/25 14:39 01/18/25 14:39 Labs: Laboratory Results - last 48 hr 01/20/25 07:54 Estimat Average Glucose 103 Hemoglobin A1c % 5.2 Triglycerides 64 Cholesterol 193 LDL Cholesterol, Calc 145 H HDL Cholesterol 36 L TSH 1.40 Imaging Radiology Impressions: ITS Impressions Chest X-Ray 01/18/25 14:22 IMPRESSION: No active pulmonary disease. Electronically signed by: Chandrakant Wilkes MD 01/18/2025 03:16 PM [facility] Medications Medications Current Medications Acetaminophen (Acetaminophen 325 Mg Tablet) 650 mg PO Q6H PRN PRN Reason: Headache/Pain, Scale 1-10 Last Admin: 01/20/25 08:36 Dose: 650 mg Al Hydroxide/Mg Hydroxide (Magnesium Hydrox/Alum Hydrox 30 Ml Oral.Susp) 30 ml PO Q6H PRN PRN Reason: Heartburn/Nausea Cefuroxime Axetil (Cefuroxime Axetil 250 Mg Tablet) 250 mg PO BID RONY Stop: 01/26/25 12:00 Last Admin: 01/21/25 09:04 Dose: 250 mg Hydroxyzine HCl (Hydroxyzine Hcl 25 Mg Tablet) 25 mg PO Q6H PRN PRN Reason: mild anxiety Magnesium Hydroxide (Milk Of Magnesia 30 Ml Oral.Susp) 30 ml PO DAILY PRN PRN Reason: Constipation Last Admin: 01/20/25 21:01 Dose: 30 ml Melatonin (Melatonin 3 Mg Tablet) 3 mg PO BEDTIME RONY Last Admin: 01/20/25 21:02 Dose: 3 mg Mirtazapine (Mirtazapine 15 Mg Tablet) 15 mg PO BEDTIME RONY Last Admin: 01/20/25 21:01 Dose: 15 mg Nicotine (Nicotine 21 Mg Patch.Td24) 21 mg TRANSDERMA DAILY PRN PRN Reason: smoking cessation Nicotine Polacrilex (Nicotine Polacrilex 2 Mg Gum) 4 mg BUCCAL Q2H PRN PRN Reason: Nicotine Cravings Trazodone HCl (Trazodone Hcl 50 Mg Tablet) 50 mg PO BEDTIME MRX1 PRN PRN Reason: Insomnia Last Admin: 01/20/25 21:01 Dose: 50 mg Allergies Allergies Allergy/AdvReac Type Severity Reaction Status Date / Time Penicillins Allergy Intermediate Rash Verified 01/18/25 14:10 Sulfa (Sulfonamide Allergy Intermediate Rash Verified 01/18/25 14:10 Antibiotics) [Sulfonamides] Assessment & Plan Assessment & Plan (1) MDD (major depressive disorder), recurrent episode: Status: Acute Code(s): F33.9 - Major depressive disorder, recurrent, unspecified Plan Patient is a 74-year-old male with history of MDD who presented to ER due to suicidal ideation secondary to increased depression and hopelessness. Plan: CV 15 minute safety checks Start: Remeron 15mg PO bedtime Melatonin 3mg PO bedtime Referral to outpatient psychiatric providers Encourage groups Discharge planning 01/21: Continue current management and treatment plan. Reason for continued inpatient stay Substantial Risk for: harm to self and inability to function Time Spent With Patient Time: Total time managing care of this patient today ____ minutes.
--- NOTE | 2025-01-21 18:53 | PC.NURSE ---
Pt. arrived on unit at 18:10 via WC accompanied by RN. Pt. is intra hospital transfer from another unit. He is A & O x 4. Ambulates independently with steady gait. Oriented to unit.
[2025-01-21 20:00] VITALS: BP 153/80; PULSE 89; RESP 18; TEMP 36.6; O2SAT 97
[2025-01-21] MEDS: Mirtazapine 15 MG TABLET PO (20:06)
[2025-01-21] MEDS: traZODone HCL 50 MG TABLET PO (20:06)
[2025-01-21] MEDS: Melatonin 3 MG TABLET PO (20:06)
[2025-01-22] MEDS: cefuroxime axetiL 250 MG TABLET PO (08:01)
[2025-01-22 08:04] VITALS: BP 135/60; PULSE 82; RESP 18; TEMP 36.5; O2SAT 98
--- NOTE | 2025-01-22 11:12 | HO.PSYCHPN ---
Subjective Subjective Date of Service: 01/22/25 Reason For Visit: Depression Interim History: Patient seen and discussed. Transferred to [facility] yesterday evening. Says his Rosacea which is affected by his mood and anxiety is flaring up. He feels the Ceftin isn't helpful and used to be on Tetracycline. He hasn't been in contact with a PCP or a oil inspector for his aortic valve disease. He remains concerned about his living situation and what next and where he has to go. He reports poor sleep. He used to take Trazodone. He hasn't utilized it here yet. Remains tearful. He is future oriented and planning on going to a motel and finding an apartment because he lost his bed at the [facility] while staying at the mot. He denies he has active SI. He denies AVH. Review of Systems Review of Systems Yes all other systems are reviewed and are negative Mental Status Exam Mental Status Exam Patient Appearance: Well Grooomed Patient Orientation: Person, Place, Time and Situation Level of Consciousness: Awake and Alert Patient Behavior: Appropriate, Cooperative and Good Eye Contact Mood Description: Calm and Depressed Affect Description: Calm Ability to Follow Directions: Good Speech Pattern: Clear and Appropriate Memory Description: Intact Diagnostics Vital Signs (24Hr): Vital Signs - 24 hr 01/21/25 20:00 01/22/25 08:04 Temperature 97.8 F 97.7 F Pulse Rate 89 82 Respiratory Rate 18 18 Blood Pressure 153/80 H 135/60 Pulse Oximetry 97 98 Oxygen Delivery Method Room Air Room Air BMI result Body Mass Index 28.8 Labs 01/18/25 14:39 01/18/25 14:39 Imaging Radiology Impressions: ITS Impressions Chest X-Ray 01/18/25 14:22 IMPRESSION: No active pulmonary disease. Electronically signed by: Chanrdakant Wilkes MD 01/18/2025 03:16 PM [facility] Medications Medications Current Medications Acetaminophen (Acetaminophen 325 Mg Tablet) 650 mg PO Q6H PRN PRN Reason: Headache/Pain, Scale 1-10 Last Admin: 01/20/25 08:36 Dose: 650 mg Al Hydroxide/Mg Hydroxide (Magnesium Hydrox/Alum Hydrox 30 Ml Oral.Susp) 30 ml PO Q6H PRN PRN Reason: Heartburn/Nausea Cefuroxime Axetil (Cefuroxime Axetil 250 Mg Tablet) 250 mg PO BID [facility] Stop: 01/26/25 12:00 Last Admin: 01/22/25 08:01 Dose: 250 mg Hydroxyzine HCl (Hydroxyzine Hcl 25 Mg Tablet) 25 mg PO Q6H PRN PRN Reason: mild anxiety Magnesium Hydroxide (Milk Of Magnesia 30 Ml Oral.Susp) 30 ml PO DAILY PRN PRN Reason: Constipation Last Admin: 01/20/25 21:01 Dose: 30 ml Melatonin (Melatonin 3 Mg Tablet) 3 mg PO BEDTIME RONY Last Admin: 01/21/25 20:06 Dose: 3 mg Mirtazapine (Mirtazapine 15 Mg Tablet) 15 mg PO BEDTIME RONY Last Admin: 01/21/25 20:06 Dose: 15 mg Nicotine (Nicotine 21 Mg Patch.Td24) 21 mg TRANSDERMA DAILY PRN PRN Reason: smoking cessation Nicotine Polacrilex (Nicotine Polacrilex 2 Mg Gum) 4 mg BUCCAL Q2H PRN PRN Reason: Nicotine Cravings Trazodone HCl (Trazodone Hcl 50 Mg Tablet) 50 mg PO BEDTIME MRX1 PRN PRN Reason: Insomnia Last Admin: 01/21/25 20:06 Dose: 50 mg Allergies Allergies Allergy/AdvReac Type Severity Reaction Status Date / Time Penicillins Allergy Intermediate Rash Verified 01/18/25 14:10 Sulfa (Sulfonamide Allergy Intermediate Rash Verified 01/18/25 14:10 Antibiotics) [Sulfonamides] Assessment & Plan Assessment & Plan (1) MDD (major depressive disorder), recurrent episode: Status: Acute Code(s): F33.9 - Major depressive disorder, recurrent, unspecified Plan Patient is a 74-year-old male with history of MDD who presented to ER due to suicidal ideation secondary to increased depression and hopelessness. Plan: CV 15 minute safety checks Start: Remeron 15mg PO bedtime Melatonin 3mg PO bedtime Referral to outpatient psychiatric providers Encourage groups Discharge planning 01/21: Continue current management and treatment plan. 01/22: Increase Remeron to 30 mg. Trazodone 100 mg. Switch Ceftin to Doxycycline for Rosacea. Reason for continued inpatient stay Substantial Risk for: harm to self, inability to function and rapid decompensation Time Spent With Patient Time: Total time managing care of this patient today ____ minutes.
[2025-01-22] MEDS: Doxycycline Monohydrate 100 MG CAPSULE PO ×2 (13:29→21:07)
[2025-01-22 20:00] VITALS: BP 124/68; PULSE 99; RESP 18; TEMP 36.9; O2SAT 98
[2025-01-22] MEDS: Melatonin 3 MG TABLET PO (20:32)
[2025-01-22] MEDS: traZODone HCL 50 MG TABLET PO (20:32)
[2025-01-22] MEDS: Mirtazapine 30 MG TABLET PO (20:32)
[2025-01-23 08:40] VITALS: BP 115/72; PULSE 88; RESP 15; TEMP 36.8; O2SAT 97
--- NOTE | 2025-01-23 09:53 | HO.PSYCHPN ---
Subjective Subjective Date of Service: 01/23/25 Reason For Visit: Depression Subjective Notes: Conditional Voluntary Interim History: The nursing staff reported the patient had been compliant with treatment, no changes in his mental status. On interview the patient reported that he was feeling dysphoric but not suicidal at this moment. It seems that there is some inconsistent on his symptoms. We will try to gather more collateral information. Mental Status Exam Mental Status Exam Patient Appearance: Appropriate Patient Orientation: Person and Situation Level of Consciousness: Awake and Appropriate Patient Behavior: Guarded and Passive Mood Description: Withdrawn Affect Description: Constricted Patient Cognition Impaired: Yes Ability to Follow Directions: Good Speech Pattern: Clear Hallucinations: None Delusions: Not Present Thought Process: Distracted and Slowed Thinking Thought Content: positive for Vivian and positive for Poverty of Content Judgement: Fair Diagnostics Vital Signs (24Hr): Vital Signs - 24 hr 01/22/25 20:00 01/23/25 08:40 Temperature 98.5 F 98.2 F Pulse Rate 99 88 Respiratory Rate 18 15 Blood Pressure 124/68 115/72 Pulse Oximetry 98 97 Oxygen Delivery Method Room Air Room Air BMI result Body Mass Index 28.8 Labs 01/18/25 14:39 01/18/25 14:39 Imaging Radiology Impressions: ITS Impressions Chest X-Ray 01/18/25 14:22 IMPRESSION: No active pulmonary disease. Electronically signed by: Chandrakant Wilkes MD 01/18/2025 03:16 PM [facility] Medications Medications Current Medications Acetaminophen (Acetaminophen 325 Mg Tablet) 650 mg PO Q6H PRN PRN Reason: Headache/Pain, Scale 1-10 Last Admin: 01/20/25 08:36 Dose: 650 mg Al Hydroxide/Mg Hydroxide (Magnesium Hydrox/Alum Hydrox 30 Ml Oral.Susp) 30 ml PO Q6H PRN PRN Reason: Heartburn/Nausea Doxycycline Monohydrate (Doxycycline Monohydrate 100 Mg Capsule) 100 mg PO Q12H [facility] Last Admin: 01/22/25 21:07 Dose: 100 mg Hydroxyzine HCl (Hydroxyzine Hcl 25 Mg Tablet) 25 mg PO Q6H PRN PRN Reason: mild anxiety Magnesium Hydroxide (Milk Of Magnesia 30 Ml Oral.Susp) 30 ml PO DAILY PRN PRN Reason: Constipation Last Admin: 01/20/25 21:01 Dose: 30 ml Melatonin (Melatonin 3 Mg Tablet) 3 mg PO BEDTIME [facility] Last Admin: 01/22/25 20:32 Dose: 3 mg Mirtazapine (Mirtazapine 30 Mg Tablet) 30 mg PO BEDTIME [facility] Last Admin: 01/22/25 20:32 Dose: 30 mg Nicotine (Nicotine 21 Mg Patch.Td24) 21 mg TRANSDERMA DAILY PRN PRN Reason: smoking cessation Nicotine Polacrilex (Nicotine Polacrilex 2 Mg Gum) 4 mg BUCCAL Q2H PRN PRN Reason: Nicotine Cravings Trazodone HCl (Trazodone Hcl 50 Mg Tablet) 50 mg PO BEDTIME MRX1 [facility] Last Admin: 01/22/25 22:16 Dose: Not Given Allergies Allergies Allergy/AdvReac Type Severity Reaction Status Date / Time Penicillins Allergy Intermediate Rash Verified 01/18/25 14:10 Sulfa (Sulfonamide Allergy Intermediate Rash Verified 01/18/25 14:10 Antibiotics) [Sulfonamides] Assessment & Plan Assessment & Plan (1) MDD (major depressive disorder), recurrent episode: Status: Acute Code(s): F33.9 - Major depressive disorder, recurrent, unspecified Plan Patient is a 74-year-old male with history of MDD who presented to ER due to suicidal ideation secondary to increased depression and hopelessness. Plan: CV 15 minute safety checks Start: Remeron 15mg PO bedtime Melatonin 3mg PO bedtime Referral to outpatient psychiatric providers Encourage groups Discharge planning The patient was started on Remeron titrated up to 30 mg p.o. q.h.s. to target depression. Reason for continued inpatient stay Substantial Risk for: inability to function, rapid decompensation and med/psych decompensation Time Spent With Patient Time: Total time managing care of this patient today __20__ minutes.
[2025-01-23] MEDS: Doxycycline Monohydrate 100 MG CAPSULE PO ×2 (10:35→21:00)
[2025-01-23 20:00] VITALS: BP 144/77; PULSE 92; RESP 18; TEMP 37.3; O2SAT 98
[2025-01-23] MEDS: Mirtazapine 30 MG TABLET PO (20:14)
[2025-01-23] MEDS: Melatonin 3 MG TABLET PO (20:14)
[2025-01-23] MEDS: traZODone HCL 50 MG TABLET PO (20:14)
[2025-01-24 08:30] VITALS: BP 142/82; PULSE 75; RESP 18; TEMP 36.8; O2SAT 98
[2025-01-24] MEDS: Doxycycline Monohydrate 100 MG CAPSULE PO ×2 (09:22→20:59)
[2025-01-24] MEDS: hydrOXYzine HCL 25 MG TABLET PO ×2 (10:11→16:07)
--- NOTE | 2025-01-24 10:27 | HO.PSYCHPN ---
Subjective Subjective Date of Service: 01/24/25 Reason For Visit: Depression Subjective Notes: Conditional Voluntary Interim History: The nursing staff reported the patient showed mild anxiety, he had good appetite and slept fairly well. On interview the patient reports mild anxiety able to contract for safety. Mental Status Exam Mental Status Exam Patient Appearance: Well Grooomed and Appropriate Patient Orientation: Person and Situation Level of Consciousness: Awake Patient Behavior: Appropriate and Cooperative Mood Description: Calm Affect Description: Constricted Patient Cognition Impaired: Yes Ability to Follow Directions: Good Speech Pattern: Clear Hallucinations: None Delusions: Ideas of Reference Thought Process: Distracted and Slowed Thinking Thought Content: positive for [place] and positive for Poverty of Content Judgement: Fair Diagnostics Vital Signs (24Hr): Vital Signs - 24 hr 01/23/25 20:00 01/24/25 08:30 Temperature 99.1 F 98.2 F Pulse Rate 92 75 Respiratory Rate 18 18 Blood Pressure 144/77 H 142/82 H Pulse Oximetry 98 98 Oxygen Delivery Method Room Air Room Air BMI result Body Mass Index 28.8 Labs 01/18/25 14:39 01/18/25 14:39 Imaging Radiology Impressions: ITS Impressions Chest X-Ray 01/18/25 14:22 IMPRESSION: No active pulmonary disease. Electronically signed by: Chandrakant Wilkes MD 01/18/2025 03:16 PM [facility] Medications Medications Current Medications Acetaminophen (Acetaminophen 325 Mg Tablet) 650 mg PO Q6H PRN PRN Reason: Headache/Pain, Scale 1-10 Last Admin: 01/20/25 08:36 Dose: 650 mg Al Hydroxide/Mg Hydroxide (Magnesium Hydrox/Alum Hydrox 30 Ml Oral.Susp) 30 ml PO Q6H PRN PRN Reason: Heartburn/Nausea Doxycycline Monohydrate (Doxycycline Monohydrate 100 Mg Capsule) 100 mg PO Q12H [facility] Last Admin: 01/24/25 09:22 Dose: 100 mg Hydroxyzine HCl (Hydroxyzine Hcl 25 Mg Tablet) 25 mg PO Q6H PRN PRN Reason: mild anxiety Last Admin: 01/24/25 10:11 Dose: 25 mg Magnesium Hydroxide (Milk Of Magnesia 30 Ml Oral.Susp) 30 ml PO DAILY PRN PRN Reason: Constipation Last Admin: 01/20/25 21:01 Dose: 30 ml Melatonin (Melatonin 3 Mg Tablet) 3 mg PO BEDTIME [facility] Last Admin: 01/23/25 20:14 Dose: 3 mg Mirtazapine (Mirtazapine 30 Mg Tablet) 30 mg PO BEDTIME [facility] Last Admin: 01/23/25 20:14 Dose: 30 mg Nicotine (Nicotine 21 Mg Patch.Td24) 21 mg TRANSDERMA DAILY PRN PRN Reason: smoking cessation Nicotine Polacrilex (Nicotine Polacrilex 2 Mg Gum) 4 mg BUCCAL Q2H PRN PRN Reason: Nicotine Cravings Trazodone HCl (Trazodone Hcl 50 Mg Tablet) 50 mg PO BEDTIME MRX1 [facility] Last Admin: 01/23/25 22:50 Dose: Not Given Allergies Allergies Allergy/AdvReac Type Severity Reaction Status Date / Time Penicillins Allergy Intermediate Rash Verified 01/18/25 14:10 Sulfa (Sulfonamide Allergy Intermediate Rash Verified 01/18/25 14:10 Antibiotics) [Sulfonamides] Assessment & Plan Assessment & Plan (1) MDD (major depressive disorder), recurrent episode: Status: Acute Code(s): F33.9 - Major depressive disorder, recurrent, unspecified Plan Patient is a 74-year-old male with history of MDD who presented to ER due to suicidal ideation secondary to increased depression and hopelessness. Plan: CV 15 minute safety checks Start: Remeron 15mg PO bedtime Melatonin 3mg PO bedtime Referral to outpatient psychiatric providers Encourage groups Discharge planning The patient was started on Remeron titrated up to 30 mg p.o. q.h.s. to target depression. Reason for continued inpatient stay Substantial Risk for: inability to function, rapid decompensation and med/psych decompensation Time Spent With Patient Time: Total time managing care of this patient today __20__ minutes.
[2025-01-24] MEDS: Melatonin 3 MG TABLET PO (20:59)
[2025-01-24] MEDS: Mirtazapine 30 MG TABLET PO (20:59)
[2025-01-24] MEDS: traZODone HCL 50 MG TABLET PO ×2 (20:59→21:02)
[2025-01-24 21:15] VITALS: BP 134/73; PULSE 90; RESP 16; TEMP 37.2; O2SAT 93
[2025-01-25 07:40] VITALS: BP 121/76; PULSE 84; RESP 18; TEMP 36.4
[2025-01-25] MEDS: hydrOXYzine HCL 25 MG TABLET PO ×3 (07:46→21:23)
[2025-01-25] MEDS: Doxycycline Monohydrate 100 MG CAPSULE PO ×2 (09:03→21:23)
--- NOTE | 2025-01-25 12:33 | P.PNPSI_ITS ---
Subjective Subjective Date of Service: 01/25/25 Reason For Visit: Depression Subjective Notes: Conditional Voluntary Interim History: The nursing staff reported the patient had been pleasant, cooperative denies suicidal ideation he slept 7 hours. The social welfare administrator reported that we try to contact the skilled nursing but we could not get more collateral information. The occupational therapist did a [place] and he scored 24/30 and 4.4 on the Brady test. On interview we discussed the results and he agreed to have an MRI of the head to rule out Wernicke-Korsakoff syndrome. We are starting Aricept 5 mg p.o. q.h.s.. Mental Status Exam Mental Status Exam Patient Appearance: Appropriate Patient Orientation: Person and Situation Level of Consciousness: Awake and Appropriate Patient Behavior: Guarded and Passive Mood Description: Withdrawn Affect Description: Constricted Patient Cognition Impaired: Yes Ability to Follow Directions: Good Speech Pattern: Clear Hallucinations: None Delusions: Not Present Thought Process: Distracted and Slowed Thinking Thought Content: positive for [place] and positive for Poverty of Content Judgement: Fair Diagnostics Vital Signs (24Hr): Vital Signs - 24 hr 01/24/25 21:15 01/25/25 07:40 Temperature 99.0 F 97.5 F Pulse Rate 90 84 Respiratory Rate 16 18 Blood Pressure 134/73 121/76 Pulse Oximetry 93 Oxygen Delivery Method Room Air Room Air BMI result Body Mass Index 28.8 Labs 01/18/25 14:39 01/18/25 14:39 Imaging Radiology Impressions: ITS Impressions Chest X-Ray 01/18/25 14:22 IMPRESSION: No active pulmonary disease. Electronically signed by: Chandrakant Wilkes MD 01/18/2025 03:16 PM [facility] Medications Medications Current Medications Acetaminophen (Acetaminophen 325 Mg Tablet) 650 mg PO Q6H PRN PRN Reason: Headache/Pain, Scale 1-10 Last Admin: 01/20/25 08:36 Dose: 650 mg Al Hydroxide/Mg Hydroxide (Magnesium Hydrox/Alum Hydrox 30 Ml Oral.Susp) 30 ml PO Q6H PRN PRN Reason: Heartburn/Nausea Donepezil HCl (Donepezil Hcl 5 Mg Tablet) 5 mg PO BEDTIME [facility] Doxycycline Monohydrate (Doxycycline Monohydrate 100 Mg Capsule) 100 mg PO Q12H [facility] Last Admin: 01/25/25 09:03 Dose: 100 mg Hydroxyzine HCl (Hydroxyzine Hcl 25 Mg Tablet) 25 mg PO Q6H PRN PRN Reason: mild anxiety Last Admin: 01/25/25 07:46 Dose: 25 mg Magnesium Hydroxide (Milk Of Magnesia 30 Ml Oral.Susp) 30 ml PO DAILY PRN PRN Reason: Constipation Last Admin: 01/20/25 21:01 Dose: 30 ml Melatonin (Melatonin 3 Mg Tablet) 3 mg PO BEDTIME [facility] Last Admin: 01/24/25 20:59 Dose: 3 mg Mirtazapine (Mirtazapine 30 Mg Tablet) 30 mg PO BEDTIME [facility] Last Admin: 01/24/25 20:59 Dose: 30 mg Nicotine (Nicotine 21 Mg Patch.Td24) 21 mg TRANSDERMA DAILY PRN PRN Reason: smoking cessation Nicotine Polacrilex (Nicotine Polacrilex 2 Mg Gum) 4 mg BUCCAL Q2H PRN PRN Reason: Nicotine Cravings Trazodone HCl (Trazodone Hcl 50 Mg Tablet) 50 mg PO BEDTIME MRX1 [facility] Last Admin: 01/24/25 21:02 Dose: 50 mg Allergies Allergies Allergy/AdvReac Type Severity Reaction Status Date / Time Penicillins Allergy Intermediate Rash Verified 01/18/25 14:10 Sulfa (Sulfonamide Allergy Intermediate Rash Verified 01/18/25 14:10 Antibiotics) [Sulfonamides] Assessment & Plan Assessment & Plan (1) MDD (major depressive disorder), recurrent episode: Status: Acute Code(s): F33.9 - Major depressive disorder, recurrent, unspecified Plan Patient is a 74-year-old male with history of MDD who presented to ER due to suicidal ideation secondary to increased depression and hopelessness. Plan: CV 15 minute safety checks Start: Remeron 15mg PO bedtime Melatonin 3mg PO bedtime Referral to outpatient psychiatric providers Encourage groups Discharge planning The patient was started on Remeron titrated up to 30 mg p.o. q.h.s. to target depression. MRI of the head without contrast to rule out Wernicke-Korsakoff syndrome. On January 25 we started Aricept 5 mg p.o. q.h.s. Reason for continued inpatient stay Substantial Risk for: inability to function, rapid decompensation and med/psych decompensation Time Spent With Patient Time: Total time managing care of this patient today _20___ minutes.
[2025-01-25 20:00] VITALS: BP 153/78; PULSE 82; RESP 16; TEMP 37.1; O2SAT 98
[2025-01-25] MEDS: Mirtazapine 30 MG TABLET PO (21:23)
[2025-01-25] MEDS: Donepezil HCl 5 MG TABLET PO (21:23)
[2025-01-25] MEDS: traZODone HCL 50 MG TABLET PO (21:23)
[2025-01-25] MEDS: Melatonin 3 MG TABLET PO (21:23)
[2025-01-26 08:00] VITALS: BP 137/68; PULSE 78; RESP 15; TEMP 36.7; O2SAT 99
[2025-01-26] MEDS: Doxycycline Monohydrate 100 MG CAPSULE PO ×2 (08:32→20:05)
[2025-01-26] MEDS: hydrOXYzine HCL 25 MG TABLET PO ×2 (10:54→19:58)
--- NOTE | 2025-01-26 11:12 | HO.PSYCHPN ---
Subjective Subjective Date of Service: 01/26/25 Reason For Visit: Depression Subjective Notes: Conditional Voluntary Interim History: The nursing staff reported the patient denied signs and symptoms of depression. The occupational therapist reported that he was sexually inappropriate. Cognitive testing was done and he scored 4.4 on the Brady test and 23/30 on the [place]. The addiction social worker could got collateral information. Apparently the sober house he relapsed and he is not allowed to go back because he was very disruptive. He was and he has 2 children who are not in contact with him. On interview, the patient initially reported he was doing fine he was waiting for the MRI to rule out Wernicke-Korsakoff syndrome. Later on we explained his discharge planning and mostly he will discharge next Thursday. Mental Status Exam Mental Status Exam Patient Appearance: Appropriate Patient Orientation: Person and Situation Level of Consciousness: Awake and Appropriate Patient Behavior: Guarded and Passive Mood Description: Calm Affect Description: Constricted Patient Cognition Impaired: Yes Ability to Follow Directions: Good Speech Pattern: Clear Hallucinations: None Delusions: Not Present Thought Process: Linear Thought Content: positive for [place] and positive for Poverty of Content Judgement: Fair Diagnostics Vital Signs (24Hr): Vital Signs - 24 hr 01/25/25 20:00 01/26/25 08:00 Temperature 98.7 F 98.0 F Pulse Rate 82 78 Respiratory Rate 16 15 Blood Pressure 153/78 H 137/68 Pulse Oximetry 98 99 Oxygen Delivery Method Room Air Room Air BMI result Body Mass Index 28.8 Labs 01/18/25 14:39 01/18/25 14:39 Imaging Radiology Impressions: ITS Impressions Chest X-Ray 01/18/25 14:22 IMPRESSION: No active pulmonary disease. Electronically signed by: Chandrakant Wilkes MD 01/18/2025 03:16 PM [facility] Medications Medications Current Medications Acetaminophen (Acetaminophen 325 Mg Tablet) 650 mg PO Q6H PRN PRN Reason: Headache/Pain, Scale 1-10 Last Admin: 01/20/25 08:36 Dose: 650 mg Al Hydroxide/Mg Hydroxide (Magnesium Hydrox/Alum Hydrox 30 Ml Oral.Susp) 30 ml PO Q6H PRN PRN Reason: Heartburn/Nausea Donepezil HCl (Donepezil Hcl 5 Mg Tablet) 5 mg PO BEDTIME [facility] Last Admin: 01/25/25 21:23 Dose: 5 mg Doxycycline Monohydrate (Doxycycline Monohydrate 100 Mg Capsule) 100 mg PO Q12H [facility] Last Admin: 01/26/25 08:32 Dose: 100 mg Hydroxyzine HCl (Hydroxyzine Hcl 25 Mg Tablet) 25 mg PO Q6H PRN PRN Reason: mild anxiety Last Admin: 01/26/25 10:54 Dose: 25 mg Magnesium Hydroxide (Milk Of Magnesia 30 Ml Oral.Susp) 30 ml PO DAILY PRN PRN Reason: Constipation Last Admin: 01/20/25 21:01 Dose: 30 ml Melatonin (Melatonin 3 Mg Tablet) 3 mg PO BEDTIME [facility] Last Admin: 01/25/25 21:23 Dose: 3 mg Mirtazapine (Mirtazapine 30 Mg Tablet) 30 mg PO BEDTIME [facility] Last Admin: 01/25/25 21:23 Dose: 30 mg Nicotine (Nicotine 21 Mg Patch.Td24) 21 mg TRANSDERMA DAILY PRN PRN Reason: smoking cessation Nicotine Polacrilex (Nicotine Polacrilex 2 Mg Gum) 4 mg BUCCAL Q2H PRN PRN Reason: Nicotine Cravings Trazodone HCl (Trazodone Hcl 50 Mg Tablet) 50 mg PO BEDTIME MRX1 [facility] Last Admin: 01/25/25 23:01 Dose: Not Given Allergies Allergies Allergy/AdvReac Type Severity Reaction Status Date / Time Penicillins Allergy Intermediate Rash Verified 01/18/25 14:10 Sulfa (Sulfonamide Allergy Intermediate Rash Verified 01/18/25 14:10 Antibiotics) [Sulfonamides] Assessment & Plan Assessment & Plan (1) MDD (major depressive disorder), recurrent episode: Status: Acute Code(s): F33.9 - Major depressive disorder, recurrent, unspecified Plan Patient is a 74-year-old male with history of MDD who presented to ER due to suicidal ideation secondary to increased depression and hopelessness. Plan: CV 15 minute safety checks Start: Remeron 15mg PO bedtime Melatonin 3mg PO bedtime Referral to outpatient psychiatric providers Encourage groups Discharge planning The patient was started on Remeron titrated up to 30 mg p.o. q.h.s. to target depression. MRI of the head without contrast to rule out Wernicke-Korsakoff syndrome. On January 25 we started Aricept 5 mg p.o. q.h.s. Reason for continued inpatient stay Substantial Risk for: inability to function, rapid decompensation and med/psych decompensation Time Spent With Patient Time: Total time managing care of this patient today __20__ minutes.
[2025-01-26 13:32] VITALS: BMI 29.6
[2025-01-26] MEDS: hydrOXYzine HCL 50 MG TABLET PO (14:02)
[2025-01-26] MEDS: Donepezil HCl 5 MG TABLET PO (19:57)
[2025-01-26] MEDS: Mirtazapine 30 MG TABLET PO (19:57)
[2025-01-26 20:00] VITALS: BP 144/80; PULSE 82; RESP 16; TEMP 36.3; O2SAT 98
[2025-01-26] MEDS: traZODone HCL 50 MG TABLET PO ×2 (20:06→22:12)
[2025-01-26] MEDS: Melatonin 3 MG TABLET PO (22:09)
[2025-01-27 08:00] VITALS: BP 149/70; PULSE 64; RESP 18; TEMP 36.2; O2SAT 94
[2025-01-27] MEDS: Doxycycline Monohydrate 100 MG CAPSULE PO ×2 (10:06→19:50)
--- NOTE | 2025-01-27 16:24 | HO.PSYCHPN ---
Subjective Subjective Date of Service: 01/27/25 Reason For Visit: Depression Subjective Notes: Conditional Voluntary Interim History: The nursing staff reported the patient had been taking his medications slept well last night. On interview the patient reports that he is feeling worried about discharge, I offered him naltrexone and he agreed. He minimized his substance abuse. Mental Status Exam Mental Status Exam Patient Appearance: Appropriate Patient Orientation: Person and Situation Level of Consciousness: Awake and Appropriate Patient Behavior: Guarded and Passive Mood Description: Withdrawn Affect Description: Constricted Patient Cognition Impaired: Yes Ability to Follow Directions: Good Speech Pattern: Clear Hallucinations: None Delusions: Not Present Thought Process: Distracted and Slowed Thinking Thought Content: positive for [place] and positive for Poverty of Content Judgement: Fair Diagnostics Vital Signs (24Hr): Vital Signs - 24 hr 01/26/25 20:00 01/27/25 08:00 Temperature 97.3 F 97.1 F Pulse Rate 82 64 Respiratory Rate 16 18 Blood Pressure 144/80 H 149/70 H Pulse Oximetry 98 94 Oxygen Delivery Method Room Air Room Air BMI result Body Mass Index 29.6 Labs 01/18/25 14:39 01/18/25 14:39 Imaging Radiology Impressions: ITS Impressions Chest X-Ray 01/18/25 14:22 IMPRESSION: No active pulmonary disease. Electronically signed by: Chandrakant Wilkes MD 01/18/2025 03:16 PM [facility] Medications Medications Current Medications Acetaminophen (Acetaminophen 325 Mg Tablet) 650 mg PO Q6H PRN PRN Reason: Headache/Pain, Scale 1-10 Last Admin: 01/20/25 08:36 Dose: 650 mg Al Hydroxide/Mg Hydroxide (Magnesium Hydrox/Alum Hydrox 30 Ml Oral.Susp) 30 ml PO Q6H PRN PRN Reason: Heartburn/Nausea Donepezil HCl (Donepezil Hcl 5 Mg Tablet) 5 mg PO BEDTIME [facility] Last Admin: 01/26/25 19:57 Dose: 5 mg Doxycycline Monohydrate (Doxycycline Monohydrate 100 Mg Capsule) 100 mg PO Q12H [facility] Last Admin: 01/27/25 10:06 Dose: 100 mg Hydroxyzine HCl (Hydroxyzine Hcl 25 Mg Tablet) 25 mg PO Q6H PRN PRN Reason: mild anxiety Last Admin: 01/26/25 19:58 Dose: 25 mg Magnesium Hydroxide (Milk Of Magnesia 30 Ml Oral.Susp) 30 ml PO DAILY PRN PRN Reason: Constipation Last Admin: 01/20/25 21:01 Dose: 30 ml Melatonin (Melatonin 3 Mg Tablet) 3 mg PO BEDTIME [facility] Last Admin: 01/26/25 22:09 Dose: 3 mg Mirtazapine (Mirtazapine 30 Mg Tablet) 30 mg PO BEDTIME [facility] Last Admin: 01/26/25 19:57 Dose: 30 mg Nicotine (Nicotine 21 Mg Patch.Td24) 21 mg TRANSDERMA DAILY PRN PRN Reason: smoking cessation Nicotine Polacrilex (Nicotine Polacrilex 2 Mg Gum) 4 mg BUCCAL Q2H PRN PRN Reason: Nicotine Cravings Trazodone HCl (Trazodone Hcl 50 Mg Tablet) 50 mg PO BEDTIME MRX1 [facility] Last Admin: 01/26/25 22:12 Dose: 50 mg Allergies Allergies Allergy/AdvReac Type Severity Reaction Status Date / Time Penicillins Allergy Intermediate Rash Verified 01/18/25 14:10 Sulfa (Sulfonamide Allergy Intermediate Rash Verified 01/18/25 14:10 Antibiotics) [Sulfonamides] Assessment & Plan Assessment & Plan (1) MDD (major depressive disorder), recurrent episode: Status: Acute Code(s): F33.9 - Major depressive disorder, recurrent, unspecified Plan Patient is a 74-year-old male with history of MDD who presented to ER due to suicidal ideation secondary to increased depression and hopelessness. Plan: CV 15 minute safety checks Start: Remeron 15mg PO bedtime Melatonin 3mg PO bedtime Referral to outpatient psychiatric providers Encourage groups Discharge planning The patient was started on Remeron titrated up to 30 mg p.o. q.h.s. to target depression. MRI of the head without contrast to rule out Wernicke-Korsakoff syndrome. MRI came back without distraction of the mammillary bodies. On January 25 we started Aricept 5 mg p.o. q.h.s. On January 27 we started naltrexone 50 mg p.o. q.h.s. Reason for continued inpatient stay Substantial Risk for: inability to function, rapid decompensation and med/psych decompensation Time Spent With Patient Time: Total time managing care of this patient today __20__ minutes.
[2025-01-27] MEDS: hydrOXYzine HCL 25 MG TABLET PO (19:50)
[2025-01-27] MEDS: Donepezil HCl 5 MG TABLET PO (19:50)
[2025-01-27] MEDS: Melatonin 3 MG TABLET PO (19:50)
[2025-01-27 20:00] VITALS: BP 159/77; PULSE 84; RESP 15; TEMP 36.7; O2SAT 100
[2025-01-27] MEDS: traZODone HCL 50 MG TABLET PO (21:05)
[2025-01-27] MEDS: Mirtazapine 30 MG TABLET PO (21:20)
[2025-01-28 08:00] VITALS: BP 145/71; PULSE 84; RESP 18; TEMP 36.6; O2SAT 97
[2025-01-28] MEDS: hydrOXYzine HCL 25 MG TABLET PO (08:28)
[2025-01-28] MEDS: Naltrexone HCl 50 MG TABLET PO (08:28)
[2025-01-28] MEDS: Doxycycline Monohydrate 100 MG CAPSULE PO ×2 (09:31→20:51)
--- NOTE | 2025-01-28 17:34 | HO.PSYCHPN ---
Subjective Subjective Date of Service: 01/28/25 Reason For Visit: Depression Interim History: states GI upset with naltrexone, prefers not to take it. reports his mood is good. per staff, depressed. 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 planning to discharge thursday. Mental Status Exam Mental Status Exam Patient Appearance: Appropriate Patient Orientation: Person and Situation Level of Consciousness: Awake and Appropriate Patient Behavior: Guarded and Passive Mood Description: Withdrawn Affect Description: Constricted Patient Cognition Impaired: Yes Ability to Follow Directions: Good Speech Pattern: Clear Hallucinations: None Delusions: Not Present Thought Process: Distracted and Slowed Thinking Thought Content: positive for [place] and positive for Poverty of Content Judgement: Fair Diagnostics Vital Signs (24Hr): Vital Signs - 24 hr 01/27/25 20:00 01/28/25 08:00 Temperature 98.1 F 98 F Pulse Rate 84 84 Respiratory Rate 15 18 Blood Pressure 159/77 H 145/71 H Pulse Oximetry 100 97 Oxygen Delivery Method Room Air Room Air BMI result Body Mass Index 29.6 Labs 01/18/25 14:39 01/18/25 14:39 Imaging Radiology Impressions: ITS Impressions Chest X-Ray 01/18/25 14:22 IMPRESSION: No active pulmonary disease. Electronically signed by: Chandrakant Wilkes MD 01/18/2025 03:16 PM [facility] Medications Medications Current Medications Acetaminophen (Acetaminophen 325 Mg Tablet) 650 mg PO Q6H PRN PRN Reason: Headache/Pain, Scale 1-10 Last Admin: 01/20/25 08:36 Dose: 650 mg Al Hydroxide/Mg Hydroxide (Magnesium Hydrox/Alum Hydrox 30 Ml Oral.Susp) 30 ml PO Q6H PRN PRN Reason: Heartburn/Nausea Donepezil HCl (Donepezil Hcl 5 Mg Tablet) 5 mg PO BEDTIME [facility] Last Admin: 01/27/25 19:50 Dose: 5 mg Doxycycline Monohydrate (Doxycycline Monohydrate 100 Mg Capsule) 100 mg PO Q12H [facility] Last Admin: 01/28/25 09:31 Dose: 100 mg Hydroxyzine HCl (Hydroxyzine Hcl 25 Mg Tablet) 25 mg PO Q6H PRN PRN Reason: mild anxiety Last Admin: 01/28/25 08:28 Dose: 25 mg Magnesium Hydroxide (Milk Of Magnesia 30 Ml Oral.Susp) 30 ml PO DAILY PRN PRN Reason: Constipation Last Admin: 01/20/25 21:01 Dose: 30 ml Melatonin (Melatonin 3 Mg Tablet) 3 mg PO BEDTIME [facility] Last Admin: 01/27/25 19:50 Dose: 3 mg Mirtazapine (Mirtazapine 30 Mg Tablet) 30 mg PO BEDTIME [facility] Last Admin: 01/27/25 21:20 Dose: 30 mg Nicotine (Nicotine 21 Mg Patch.Td24) 21 mg TRANSDERMA DAILY PRN PRN Reason: smoking cessation Nicotine Polacrilex (Nicotine Polacrilex 2 Mg Gum) 4 mg BUCCAL Q2H PRN PRN Reason: Nicotine Cravings Trazodone HCl (Trazodone Hcl 50 Mg Tablet) 50 mg PO BEDTIME MRX1 [facility] Last Admin: 01/27/25 22:15 Dose: Not Given Allergies Allergies Allergy/AdvReac Type Severity Reaction Status Date / Time Penicillins Allergy Intermediate Rash Verified 01/18/25 14:10 Sulfa (Sulfonamide Allergy Intermediate Rash Verified 01/18/25 14:10 Antibiotics) [Sulfonamides] Assessment & Plan Assessment & Plan (1) MDD (major depressive disorder), recurrent episode: Status: Acute Code(s): F33.9 - Major depressive disorder, recurrent, unspecified Plan Patient is a 74-year-old male with history of MDD who presented to ER due to suicidal ideation secondary to increased depression and hopelessness. Plan: CV 15 minute safety checks Start: Remeron 15mg PO bedtime Melatonin 3mg PO bedtime Referral to outpatient psychiatric providers Encourage groups Discharge planning The patient was started on Remeron titrated up to 30 mg p.o. q.h.s. to target depression. MRI of the head without contrast to rule out Wernicke-Korsakoff syndrome. MRI came back without distraction of the mammillary bodies. On January 25 we started Aricept 5 mg p.o. q.h.s. On January 27 we started naltrexone 50 mg p.o. q.h.s. 01/28: DC naltrexone as pt cites GI upset and states he will not take it. discharge planned for thursday. continue current mgmt otherwise. Reason for continued inpatient stay Substantial Risk for: inability to function Time Spent With Patient Time: Total time managing care of this patient today ____ minutes.
[2025-01-28 20:00] VITALS: BP 123/72; PULSE 82; RESP 16; TEMP 36.6; O2SAT 98
[2025-01-28] MEDS: Mirtazapine 30 MG TABLET PO (20:51)
[2025-01-28] MEDS: Melatonin 3 MG TABLET PO (20:52)
[2025-01-28] MEDS: Donepezil HCl 5 MG TABLET PO (20:52)
[2025-01-28] MEDS: traZODone HCL 50 MG TABLET PO (20:53)
[2025-01-28] MEDS: Zolpidem Tartrate 5 MG TABLET 10 MG PO (22:11)
[2025-01-29 08:00] VITALS: BP 141/79; PULSE 88; RESP 20; TEMP 36.9; O2SAT 99
[2025-01-29] MEDS: hydrOXYzine HCL 25 MG TABLET PO (08:17)
[2025-01-29] MEDS: Doxycycline Monohydrate 100 MG CAPSULE PO ×2 (09:47→20:41)
--- NOTE | 2025-01-29 13:48 | P.PNPSI_ITS ---
Subjective Subjective Date of Service: 01/29/25 Reason For Visit: Depression Interim History: poor sleep last night, said in the space of 24H he had 3 different roommates. looking to the future, plnning to discharge tomorrow. no complaints or requests. Mental Status Exam Mental Status Exam Patient Appearance: Appropriate Patient Orientation: Person and Situation Level of Consciousness: Awake and Appropriate Patient Behavior: Guarded and Passive Mood Description: Withdrawn Affect Description: Constricted Patient Cognition Impaired: Yes Ability to Follow Directions: Good Speech Pattern: Clear Hallucinations: None Delusions: Not Present Thought Process: Distracted and Slowed Thinking Thought Content: positive for [place] and positive for P[place] of Content Judgement: Fair Diagnostics Vital Signs (24Hr): Vital Signs - 24 hr 01/28/25 20:00 01/29/25 08:00 Temperature 97.8 F 98.4 F Pulse Rate 82 88 Respiratory Rate 16 20 Blood Pressure 123/72 141/79 H Pulse Oximetry 98 99 Oxygen Delivery Method Room Air Room Air BMI result Body Mass Index 29.6 Labs 01/18/25 14:39 01/18/25 14:39 Imaging Radiology Impressions: ITS Impressions Chest X-Ray 01/18/25 14:22 IMPRESSION: No active pulmonary disease. Electronically signed by: Chandrakant Wilkes MD 01/18/2025 03:16 PM [facility] Medications Medications Current Medications Acetaminophen (Acetaminophen 325 Mg Tablet) 650 mg PO Q6H PRN PRN Reason: Headache/Pain, Scale 1-10 Last Admin: 01/20/25 08:36 Dose: 650 mg Al Hydroxide/Mg Hydroxide (Magnesium Hydrox/Alum Hydrox 30 Ml Oral.Susp) 30 ml PO Q6H PRN PRN Reason: Heartburn/Nausea Donepezil HCl (Donepezil Hcl 5 Mg Tablet) 5 mg PO BEDTIME RONY Last Admin: 01/28/25 20:52 Dose: 5 mg Doxycycline Monohydrate (Doxycycline Monohydrate 100 Mg Capsule) 100 mg PO Q12H RONY Last Admin: 01/29/25 09:47 Dose: 100 mg Hydroxyzine HCl (Hydroxyzine Hcl 25 Mg Tablet) 25 mg PO Q6H PRN PRN Reason: mild anxiety Last Admin: 01/29/25 08:17 Dose: 25 mg Magnesium Hydroxide (Milk Of Magnesia 30 Ml Oral.Susp) 30 ml PO DAILY PRN PRN Reason: Constipation Last Admin: 01/20/25 21:01 Dose: 30 ml Melatonin (Melatonin 3 Mg Tablet) 3 mg PO BEDTIME [facility] Last Admin: 01/28/25 20:52 Dose: 3 mg Mirtazapine (Mirtazapine 30 Mg Tablet) 30 mg PO BEDTIME [facility] Last Admin: 01/28/25 20:51 Dose: 30 mg Nicotine (Nicotine 21 Mg Patch.Td24) 21 mg TRANSDERMA DAILY PRN PRN Reason: smoking cessation Nicotine Polacrilex (Nicotine Polacrilex 2 Mg Gum) 4 mg BUCCAL Q2H PRN PRN Reason: Nicotine Cravings Trazodone HCl (Trazodone Hcl 50 Mg Tablet) 50 mg PO BEDTIME MRX1 [facility] Last Admin: 01/29/25 03:13 Dose: Not Given Allergies Allergies Allergy/AdvReac Type Severity Reaction Status Date / Time Penicillins Allergy Intermediate Rash Verified 01/18/25 14:10 Sulfa (Sulfonamide Allergy Intermediate Rash Verified 01/18/25 14:10 Antibiotics) [Sulfonamides] Assessment & Plan Assessment & Plan (1) MDD (major depressive disorder), recurrent episode: Status: Acute Code(s): F33.9 - Major depressive disorder, recurrent, unspecified Plan Patient is a 74-year-old male with history of MDD who presented to ER due to suicidal ideation secondary to increased depression and hopelessness. Plan: CV 15 minute safety checks Start: Remeron 15mg PO bedtime Melatonin 3mg PO bedtime Referral to outpatient psychiatric providers Encourage groups Discharge planning The patient was started on Remeron titrated up to 30 mg p.o. q.h.s. to target depression. MRI of the head without contrast to rule out Wernicke-Korsakoff syndrome. MRI came back without distraction of the mammillary bodies. On January 25 we started Aricept 5 mg p.o. q.h.s. On January 27 we started naltrexone 50 mg p.o. q.h.s. 01/28: DC naltrexone as pt cites GI upset and states he will not take it. discharge planned for thursday. continue current mgmt otherwise. 01/29: poor sleep due to unit disruptions last night. looking forward to discharge tomorrow. would like to get his meds from [facility] pharmacy so he can leave the hospital with meds in hand. Reason for continued inpatient stay Substantial Risk for: stable for discharge Time Spent With Patient Time: Total time managing care of this patient today ____ minutes.
[2025-01-29 20:00] VITALS: BP 149/81; PULSE 88; RESP 16; TEMP 36.2; O2SAT 98
[2025-01-29] MEDS: Melatonin 3 MG TABLET PO (20:38)
[2025-01-29] MEDS: traZODone HCL 50 MG TABLET PO (20:38)
[2025-01-29] MEDS: Donepezil HCl 5 MG TABLET PO (20:38)
[2025-01-29] MEDS: Mirtazapine 30 MG TABLET PO (20:39)
[2025-01-30 08:00] VITALS: BP 139/72; PULSE 64; RESP 18; TEMP 35.8; O2SAT 98
[2025-01-30] MEDS: Doxycycline Monohydrate 100 MG CAPSULE PO (09:52)
--- NOTE | 2025-01-30 10:02 | P.DS_ITS ---
DS: Providers Provider Date of Service: 01/30/25 Date of admission: 01/19/25 13:33 Date of discharge: 01/30/25 Primary care physician: None Physician DS: Diagnosis Discharge Diagnosis (1) MDD (major depressive disorder), recurrent episode: Status: Acute DS: Medications Discharge Medications Home Medications: Home Medications ?Medication ?Instructions ?Recorded ?Confirmed No Known Home Meds 01/18/25 01/18/25 Previous Rx's ?Medication ?Instructions ?Recorded donepezil 5 mg tablet 5 mg PO BEDTIME 30 days #30 tabs 01/30/25 doxycycline monohydrate 100 mg 100 mg PO Q12H 14 days #28 caps 01/30/25 capsule hydroxyzine HCl 25 mg tablet 25 mg PO Q6H PRN mild anxiety 30 01/30/25 days #60 tabs melatonin 3 mg tablet 3 mg PO BEDTIME 30 days #30 tabs 01/30/25 mirtazapine 30 mg tablet 30 mg PO BEDTIME 30 days #30 tabs 01/30/25 trazodone 50 mg tablet 50 mg PO BEDTIME MRX1 30 days #60 01/30/25 tabs Mental Status Exam Mental Status Exam Patient Appearance: Well Grooomed and Appropriate Patient Orientation: Person and Situation Level of Consciousness: Awake and Appropriate Patient Behavior: Guarded and Passive Mood Description: Calm and Withdrawn Affect Description: Constricted Patient Cognition Impaired: Yes Ability to Follow Directions: Good Speech Pattern: Clear Hallucinations: None Delusions: Not Present Thought Process: Distracted and Slowed Thinking Thought Content: positive for [place] and positive for Circumstantial Judgement: Fair Data Data Completed and Pending Completed studies during hospitalization [Text1]: 01/18/25 Unknown Urine clean catch - Clean Catch Midstream Urine Culture - Final Citrobacter freundii Imaging Diagnostic Imaging Impressions Chest X-Ray 01/18/25 14:22 IMPRESSION: No active pulmonary disease. Electronically signed by: Chandrakant Wilkes MD 01/18/2025 03:16 PM [facility] DS: Summary Hospital Course Hospital Course: The patient is a 74-year-old male who self presented to the emergency room of another hospital complaining of suicidal ideation. The patient was evicted from the sober long term that he was living for the last year and he stated that he was feeling overwhelmed. He was assessed by crisis and transfer ring to this facility for psychiatric stabilization. Please see the HPI of the admission note for further details. On admission, we started the Remeron titrated up to 30 mg p.o. q.h.s. to target depression. The patient was minimized his substance abuse and he stated that he had been clean and sober for years but after gathering collateral information from the [facility], the patient has relapsed on alcohol in the last weeks and he has been evicted. While he was in the facility the patient was able to contract for safety and he adamantly denies suicidal ideation. Since there were no safety concerns discharge planning was discussed Time spent discussing smoking cessation with patient: 3 to 10 minutes Status at Discharge Functional status at discharge: independent ambulation Overall status at discharge: patient is back to baseline Time Spent with Patient Time attestation: Total time managing care of this patient today _30___ minutes. Time spent: Less than 30 minutes Discharge Plan Discharge Anticipated Discharge Date/Time: 01/30/25 10:30 Patient Disposition: Skilled Nursing Discharge Diagnosis: Major depressive disorder Alcohol use disorder Cognitive impairment Referrals: Physician,None [Primary Care Provider] - 1 Week Discharge Medications: New donepezil 5 mg Tablet 5 mg PO BEDTIME 30 Days Qty: 30 0RF trazodone 50 mg Tablet 50 mg PO BEDTIME MRX1 30 Days Qty: 60 0RF melatonin 3 mg Tablet 3 mg PO BEDTIME 30 Days Qty: 30 0RF doxycycline monohydrate 100 mg Capsule 100 mg PO Q12H 14 Days Qty: 28 0RF mirtazapine 30 mg Tablet 30 mg PO BEDTIME 30 Days Qty: 30 0RF hydroxyzine HCl 25 mg Tablet 25 mg PO Q6H PRN (Reason: mild anxiety) 30 Days Qty: 60 0RF No Action No Known Home Meds Discharge Orders: Discharge Order (Routine); Ordered 01/30/25 Ordered By: González Waterman Diet: Advance to usual diet Activity on Discharge: As tolerated Stand Alone Forms: Patient Portal Discharge page Print Language: Arabic Care Plan Goals: Care plan goals achieved in this admission Health Concerns: Continue treatment with primary care physician and outpatient providers Plan of Treatment: Continue psychiatric treatment as an outpatient Assessment: The patient is an elderly male with a past history of alcohol use disorder, major depressive disorder, homelessness chronic admitted initially for suicidal ideation in the context of losing his housing. He was started on Remeron titrated up to 30 mg daily, cognitive assessments done and started on Aricept 5 due to possible dementia. Follow workout no evidence of Wernicke- Korsakoff at this moment. Safe to be discharged, he agreed to go to a hotel.
== END 2025-01-30 11:25 | disposition home or self-care (01) | DRG 885 ==
LOC: HO.ED 18:16 → HO.PADLT16 01-19 13:34 → HO.PGERI 01-21 18:27
PROVIDERS: Admitting Provider Psychiatry & Neurology Psychiatry; Emergency Provider Emergency Medicine; Visit Provider Psychiatry & Neurology Psychiatry
DX: F33.9 Major depressive disorder, recurrent, unspecified (principal); R45.851 Suicidal ideations; F17.210 Nicotine dependence, cigarettes, uncomplicated; Z23 Encounter for immunization; Z71.6 Tobacco abuse counseling; Z20.822 Contact with and (suspected) exposure to COVID-19; Z79.899 Other long term (current) drug therapy
CPT/HCPCS: 0241U; 36415; 70551; 71046; 80048; 80061; 80076; 80307; 81001; 83036; 83690; 83735; 83880; 84443; 84484; 85025; 85379; 85610; 86140; 87086; 87088; 87186; 90656; 93005; 99285; J2405; S9485

== ENCOUNTER → 2025-01-18 14:01 | Outpatient (BNV) | payer MEDICARE, OTHER, SELFPAY | PROVIDERS: Emergency Provider Emergency Medicine; Visit Provider Internal Medicine | DX: R07.9 Chest pain, unspecified (principal); R94.31 Abnormal electrocardiogram [ECG] [EKG] | CPT/HCPCS: 93010 ==

== ENCOUNTER → 2025-01-18 14:22 | Outpatient (BNV) | payer MEDICARE, OTHER, SELFPAY | PROVIDERS: Emergency Provider Emergency Medicine; Visit Provider Radiology Diagnostic Radiology | DX: R07.9 Chest pain, unspecified (principal) | CPT/HCPCS: 71046 ==

== ENCOUNTER 2025-01-19 13:33 | Outpatient (BNV) | payer MEDICARE, OTHER, SELFPAY | END 2025-01-26 17:14 | PROVIDERS: Admitting Provider Psychiatry & Neurology Psychiatry; Emergency Provider Emergency Medicine; Visit Provider Radiology Vascular & Interventional Radiology | DX: F33.9 Major depressive disorder, recurrent, unspecified (principal) | CPT/HCPCS: 70551 ==

== ENCOUNTER → 2025-01-19 13:33 | Outpatient (BNV) | payer MEDICARE, OTHER, SELFPAY | PROVIDERS: Admitting Provider Psychiatry & Neurology Psychiatry; Emergency Provider Emergency Medicine; Visit Provider Registered Nurse | DX: F33.9 Major depressive disorder, recurrent, unspecified (principal) | CPT/HCPCS: 90792; 99232 ==